=== PATIENT | male | born 1940 | race Caucasian/White ===

== ENCOUNTER 2018-06-15 00:01 | Inpatient (IN) | payer MEDICARE, MEDICAID ==
[~2018-06-15] VITALS: Ht 165.1 cm; Wt 62.3 kg
[2018-06-15] VITALS (7 sets, daily range): BP systolic 105–152; BP diastolic 50–81
[2018-06-15] MEDS ORDERED: ACETAMINOPHEN325 M1 ORAL (00:15)
[2018-06-15] MEDS ORDERED: ISOSOURCE HN1500 ML PO (00:25)
[2018-06-15] MEDS ORDERED: PRO-STAT LIQUID30 ML ORAL (00:25)
[2018-06-15] MEDS ORDERED: ADULT WAL-100 MG/5 M ORAL (00:25)
[2018-06-15] MEDS ORDERED: NORCO 5-325 TA1 EACH ORAL (00:25)
[2018-06-15] MEDS ORDERED: ENEMA133 M1 RC (00:25)
[2018-06-15] MEDS ORDERED: SENNA8.6 M2 PO (00:25)
[2018-06-15] MEDS ORDERED: COLACE100 MG ORAL (00:25)
[2018-06-15] MEDS ORDERED: ZOFRAN4 M3 ORAL (00:25)
[2018-06-15] MEDS ORDERED: CALCIUM CARBON500 M1 PO (00:25)
[2018-06-15] MEDS ORDERED: FOLIC ACID1 MG ORAL (00:25)
[2018-06-15] MEDS ORDERED: SINEMET 25-1001 EAC1 ORAL (00:25)
[2018-06-15] MEDS ORDERED: TIZANIDINE HCL4 MG ORAL (00:25)
[2018-06-15] MEDS ORDERED: ISOSORBIDE DINIT5 MG ORAL (00:25)
[2018-06-15] MEDS ORDERED: PANTOPRAZOLE SO40 MG ORAL (00:25)
[2018-06-15] MEDS ORDERED: LISINOPRIL5 MG ORAL (00:25)
[2018-06-15 00:54] LABS: BASOPHILS % (AUTO) 0.4 % (0.0-2.0); EOSINOPHILS % (AUTO) 0.2 % (0.0-3.0); HEMATOCRIT 29.6 % (42.0-52.0); HEMOGLOBIN 10.2 G/DL (14.2-18.0); LYMPHOCYTES % (AUTO) 15.4 % (20.0-45.0); MEAN CORPUSCULAR VOLUME 91 FL (80-99); MONOCYTES % (AUTO) 5.4 % (1.0-10.0); NEUTROPHILS % (AUTO) 78.6 % (45.0-75.0); PLATELET COUNT 287 K/UL (150-450); RED BLOOD COUNT 3.27 M/UL (4.70-6.10); RED CELL DISTRIBUTION WIDTH 12.3 % (11.6-14.8)
--- NOTE | 2018-06-15 00:56 | Emergency Room Report ---
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 He is a jail patient is a DO NOT RESUSCITATE with selected treatment. He has a G-tube and Tiwari. Also has chronic decubital ulcers. He presents with chief complaint of fever and change in mental status. Onset today. Tylenol was given for the fever. There is some congestion. No nausea no vomiting. No diarrhea. History is from EMS and jail note. Patient unable to give a history because he is nonverbal. Allergies: Coded Allergies: No Known Allergies (Unverified , 06/15/18) Patient History Past Medical History: see triage record, old chart reviewed Past Surgical History: other Pertinent Family History: none Social History: Denies: smoking Immunizations: other Reviewed Nursing Documentation: PMH: Agreed; PSxH: Agreed Nursing Documentation-PMH Past Medical History: No History, Except For Hx Cardiac Problems: Yes - atherosclerotic heart disease, anemia, elevated white blood cell count Hx Hypertension: Yes Hx COPD: Yes Hx Gastrointestinal Problems: Yes - gtube, dysphagia, gerd Hx Dialysis: No - pressure ulcer on sacral & left hip Review of Systems Constitutional: Reports: fever Eye: Denies: eye pain, blurred vision ENT: Denies: ear pain, nose congestion, throat swelling Respiratory: Reports: shortness of breath Cardiovascular: Denies: chest pain, palpitations Gastrointestinal: Denies: abdominal pain, diarrhea, nausea, vomiting Musculoskeletal: Denies: back pain, joint pain Skin: Denies: rash Neurological: Denies: headache, numbness Endocrine: Denies: increased thirst, increased urine Hematologic/Lymphatic: Denies: easy bruising All Other Systems: negative except mentioned in HPI Physical Exam Vital Signs Date Time Temp Pulse Resp B/P (MAP) Pulse Ox O2 Delivery O2 Flow Rate FiO2 06/15/18 00:04 98.0 69 20 101/59 91 Room Air 98.1 vitals with hypoxia Sp02 EP Interpretation: abnormal General Appearance: moderate distress, cachetic, Chronically Ill Head: normocephalic, atraumatic Eyes: bilateral eye PERRL, bilateral eye EOMI ENT: hearing grossly normal, dry mucus membranes Neck: full range of motion, supple, no meningismus Respiratory: chest non-tender, decreased breath sounds, crackles - right lower lobe Cardiovascular #1: regular rate, rhythm, no murmur Gastrointestinal: normal bowel sounds, non tender, no mass, no organomegaly, no bruit, non-distended Musculoskeletal: other - multiple decubital ulcers Neurologic: grossly normal Psychiatric: mood/affect normal Skin: warm/dry Procedures Critical Care Time Critical Care Time Critical care is mandated in this patient who presented with sepsis from pneumonia. Patient require my urgent intervention to attenuate the risks of and metabolic collapse which may lead to cardiovascular collapse and . Critical care time is 35 minutes excluding any reportable procedure. Critical care time included evaluation, multiple reevaluation, looking at old charts, interpreting laboratory and diagnostic data, discussing case with patient and family and consultants, and charting. Medical Decision Making Diagnostic Impression: Primary Impression: Sepsis Qualified Codes: A41.9 - Sepsis, unspecified organism Additional Impressions: Healthcare-associated pneumonia Aspiration pneumonia Qualified Codes: J69.0 - Pneumonitis due to inhalation of food and vomit UTI (urinary tract infection) Qualified Codes: N30.00 - Acute cystitis without hematuria Anemia Qualified Codes: D64.9 - Anemia, unspecified Acute prerenal azotemia Proteinuria Qualified Codes: R80.9 - Proteinuria, unspecified ER Course Patient presents with sepsis. Most likely source is pneumonia. He may have aspiration pneumonia. White spectrum antibiotics given. Other sources include his urine. Patient improved after IV fluid and antibiotics. I discussed the case with Dr. Torres who will admit. Lab Results Impression labs with elevated white count EKG Diagnostic Results Rate: normal Rhythm: NSR ST Segments: no acute changes ASA given to the pt in ED: No Rhythm Strip Diag. Results Rhythm Strip Time: 00:55 EP Interpretation: yes Rate: 76 Rhythm: NSR, no PVC's, no ectopy Chest X-Ray Diagnostic Results Chest X-Ray Diagnostic Results : Chest X-Ray Ordered: Yes # of Views/Limited/Complete: 1 View Indication: Shortness of Breath EP Interpretation: Yes Interpretation: no effusion, no pneumothorax, other - RLL infiltrate Impression: Other - RLL infiltrate Electronically Signed by: Tony Coughlin MD Last Vital Signs Date Time Temp Pulse Resp B/P (MAP) Pulse Ox O2 Delivery O2 Flow Rate FiO2 06/15/18 00:04 98.0 69 20 101/59 91 Room Air 98.1 Status: improved Disposition: HOME, SELF-CARE Condition: Serious Referrals: Beltran Santos MD (PCP) TONY COUGHLIN M.D. Jun 15, 2018 00:56
[2018-06-15 00:57] LABS: BILIRUBIN, URINE NEGATIVE (NEGATIVE); GLUCOSE, URINE (UA) 1+ (NEGATIVE); KETONES,URINE 1+ (NEGATIVE); LEUKOCYTE ESTERASE ,URINE 3+ (NEGATIVE); NITRITE,URINE NEGATIVE (NEGATIVE); PH,URINE 5 (4.5-8.0); PROTEIN,URINE 3+ (NEGATIVE); UROBILINOGEN,URINE NORMAL MG/DL (0.0-1.0)
[2018-06-15] MEDS ORDERED: Piperacillin/Tazobactam 4.5 GM in NS 110 ML IVPB ONE (01:00)
[2018-06-15 01:04] LABS: APPEARANCE,URINE CLOUDY; COLOR,URINE YELLOW
[2018-06-15 01:16] LABS: ALANINE AMINOTRANSFERASE 12 U/L (12-78); ALBUMIN 2.6 G/DL (3.4-5.0); ALBUMIN/GLOBULIN RATIO 0.5 (1.0-2.7); ALKALINE PHOSPHATASE 73 U/L (46-116); ANION GAP 6 mmol/L (5-15); ASPARTATE AMINO TRANSFERASE 17 U/L (15-37); BILIRUBIN,TOTAL 0.3 MG/DL (0.2-1.0); BLOOD UREA NITROGEN 71 mg/dL (7-18); CALCIUM 8.7 MG/DL (8.5-10.1); CARBON DIOXIDE 31 MMOL/L (21-32); CHLORIDE 101 MMOL/L (98-107); CKMB 0.7 NG/ML (0.0-3.6); CREATINE KINASE 76 U/L (26-308); CREATININE 1.1 MG/DL (0.55-1.30); POTASSIUM 4.3 MMOL/L (3.5-5.1); SODIUM 138 MMOL/L (136-145)
[2018-06-15] MEDS ORDERED: Albuterol/Ipratropium 3ml neb HHN PRN (06:30)
[2018-06-15] MEDS ORDERED: guaiFENesin 100mg/5ml Liq ud ORAL PRN (06:45)
[2018-06-15] MEDS ORDERED: Tums 500mg ORAL PRN (06:45)
[2018-06-15] MEDS ORDERED: Norco 5mg/325mg tab ORAL PRN (06:45)
[2018-06-15 07:44] LABS: HEMATOCRIT 28.7 % (42.0-52.0); HEMOGLOBIN 9.9 G/DL (14.2-18.0); MEAN CORPUSCULAR VOLUME 90 FL (80-99); PLATELET COUNT 244 K/UL (150-450); RED BLOOD COUNT 3.19 M/UL (4.70-6.10); RED CELL DISTRIBUTION WIDTH 12.1 % (11.6-14.8); WHITE BLOOD COUNT 19.6 K/UL (4.8-10.8)
[2018-06-15] MEDS ORDERED: Vancomycin 1gm/D5W 275ml IVPB SCH ×2 (08:00)
[2018-06-15] MEDS ORDERED: Vancomycin 1250mg/D5W 250ml IVPB ONE (08:00)
[2018-06-15 08:01] LABS: ALANINE AMINOTRANSFERASE 23 U/L (12-78); ALBUMIN 2.3 G/DL (3.4-5.0); ALBUMIN/GLOBULIN RATIO 0.5 (1.0-2.7); ALKALINE PHOSPHATASE 65 U/L (46-116); ANION GAP 6 mmol/L (5-15); ASPARTATE AMINO TRANSFERASE 15 U/L (15-37); BILIRUBIN,TOTAL 0.5 MG/DL (0.2-1.0); BLOOD UREA NITROGEN 57 mg/dL (7-18); CALCIUM 8.6 MG/DL (8.5-10.1); CARBON DIOXIDE 30 MMOL/L (21-32); CHLORIDE 105 MMOL/L (98-107); POTASSIUM 4.2 MMOL/L (3.5-5.1); SODIUM 141 MMOL/L (136-145)
[2018-06-15] MEDS: 1/2NS w/KCl 20mEq 1000ml 1,000 ML IV SCH (08:16)
[2018-06-15] MEDS: Docusate 100mg/10ml Liq GT SCH ×2 (08:17→17:43)
[2018-06-15] MEDS: Lisinopril 2.5mg tab GT SCH (08:20)
[2018-06-15] MEDS: Heparin 5000 units/ml inj SUBQ SCH ×2 (08:23→22:03)
[2018-06-15] MEDS: Levodopa/Carbidopa 25/100 tab GT SCH ×3 (09:56→17:43)
[2018-06-15] MEDS ORDERED: Zosyn 4.5gm q8h **Extended infusion IVPB SCH ×2 (10:00)
--- NOTE | 2018-06-15 11:22 | Diagnostic Imaging Report ---
Indication: Dyspnea Comparison: None A single view chest radiograph was obtained. Findings: Cardiomediastinal appearance is within normal limits for age. Pulmonary vascularity is appropriate. The diaphragmatic contour is smooth and costophrenic angles are sharp. No pleural effusions are identified. The bones are osteopenic. Impression: No acute findings
[2018-06-15] MEDS: NovoLOG Insulin Flexpen SUBQ SCH ×3 (12:49→22:04)
--- NOTE | 2018-06-15 16:15 | History and Physical Report ---
DATE OF ADMISSION: 06/15/2018 CHIEF COMPLAINT: Shortness of breath and fever. HISTORY OF PRESENT ILLNESS: This is a 78-year-old male from a senior living, I was called about developing fever and shortness of breath. The patient is demented. He has end-stage Parkinson disease. He was transferred to the hospital for further evaluation and management. PAST MEDICAL HISTORY: 1. End-stage Parkinson disease. 2. DNR. 3. Multiple decubitus ulcers. 4. Status post gastrostomy tube. 5. COPD. 6. Dysphagia. 7. Coronary artery disease. 8. Anemia of chronic disease. 9. Severe volume depletion. MEDICATIONS: Tube feeding, Tylenol p.r.n., calcium carbonate, carbidopa/L-dopa, Colace, Fleet enema, folic acid, [place] p.r.n., lisinopril, Protonix, amino acid liquid, senna p.r.n., and Zofran p.r.n. ALLERGIES: No known drug allergies. FAMILY HISTORY: Unremarkable. SOCIAL HISTORY: The patient lives in a senior living. REVIEW OF SYSTEMS: Unable to obtain due to his mental status. PHYSICAL EXAMINATION: GENERAL: This is an elderly cachectic male, who is in no acute distress. VITAL SIGNS: Blood pressure 152/79, pulse 83 and regular, respirations 20, and temperature is 98.2 axillary. HEENT: Head is normocephalic and atraumatic. Pupils are equal, round, and reactive to light and accommodation consensually. NECK: Supple. Trachea midline. There was no lymphadenopathy or thyromegaly. LUNGS: Clear to auscultation and percussion. HEART: Regular rate and rhythm without rubs, murmurs, or gallops. ABDOMEN: Soft and nontender. Bowel sounds were active. There is a G-tube. SKIN: He has multiple decubitus ulcers including left snuff box including sacral area stage 3. EXTREMITIES: He has contractures. NEUROLOGIC: The patient is confused. He has extreme rigidity in all four extremities. There were no lateralizing signs. LABORATORY AND ANCILLARY DATA: CBC shows white count 19,600 and hematocrit 28.7. Serum chemistry today is pending. On admission, sodium 138, potassium 4.3, BUN 71, creatinine 1.1. Albumin 2.6. Cultures pending. EKG in normal sinus rhythm. No signs of ischemia. Chest x-ray, right lower lobe infiltrate. ASSESSMENT: 1. Right lower lobe pneumonia, most likely aspiration pneumonia. 2. Multiple decubitus ulcers. 3. End-stage Parkinson disease. 4. DNR. 5. Multiple decubitus ulcers. 6. Status post gastrostomy tube. 7. COPD. 8. Dysphagia. 9. Coronary artery disease. 10. Anemia of chronic disease. 11. Severe volume depletion. PLAN: 1. Continue senior living medications with exception of Fleet enema that may exacerbate the patient's hyperphosphatemia, and "muscle relaxants" that may produce altered level of consciousness and anti cholinergic effects. 2. Nutritional support. 3. Local wound care. 4. IV fluid rehydration. 5. IV antibiotics. 6. Reduce tube feeding rate. 7. Continue the patient's DNR status. 8. Pulmonary toilet. Beltran Santos M.D. DR: WOLF JOB#: [id number] CC: JOSE MANUEL
[2018-06-15] MEDS: Sennosides 8.6mg GT SCH (22:00)
[2018-06-15] MEDS: Piperacillin/Tazobactam 4.5 GM in D5W 110 ML IVPB SCH (22:11)
[2018-06-16] VITALS: BP 128/68
[2018-06-16] MEDS: 1/2NS w/KCl 20mEq 1000ml 1,000 ML IV SCH ×2 (03:01→23:53)
[2018-06-16] MEDS: Piperacillin/Tazobactam 4.5 GM in D5W 110 ML IVPB SCH ×3 (06:28→22:30)
[2018-06-16] MEDS: NovoLOG Insulin Flexpen SUBQ SCH ×4 (06:28→20:49)
[2018-06-16] MEDS: Docusate 100mg/10ml Liq GT SCH ×2 (09:45→17:50)
[2018-06-16] MEDS: Lisinopril 2.5mg tab GT SCH (09:45)
[2018-06-16] MEDS: Levodopa/Carbidopa 25/100 tab GT SCH ×3 (09:46→17:50)
[2018-06-16] MEDS: Vancomycin 1gm/D5W 275ml IVPB SCH ×2 (09:52)
[2018-06-16] MEDS: Heparin 5000 units/ml inj SUBQ SCH ×2 (10:08→20:46)
--- NOTE | 2018-06-16 10:25 | General Progress Note ---
Assessment/Plan Assessment/Plan [facility] - IVF. Check labs. B Pneumonia IV Abx. Modify mood altering meds. DW pt's . Subjective Allergies: Coded Allergies: No Known Allergies (Unverified , 06/15/18) Subjective Confused Objective Last 24 Hour Vital Signs Date Time Temp Pulse Resp B/P (MAP) Pulse Ox O2 Delivery O2 Flow Rate FiO2 06/16/18 09:45 128/68 06/16/18 07:44 Nasal Cannula 2.0 28 06/16/18 07:44 79 18 Nasal Cannula 2.0 28 06/16/18 07:44 98 Nasal Cannula 2.0 28 06/16/18 04:00 81 06/16/18 00:00 98.0 72 22 128/68 (88) 100 98.0 06/15/18 23:00 98.6 06/15/18 22:01 98.6 06/15/18 21:00 Nasal Cannula 2.0 06/15/18 20:21 82 18 Nasal Cannula 2.0 28 06/15/18 20:21 99 Nasal Cannula 2.0 28 06/15/18 20:21 Nasal Cannula 2.0 28 06/15/18 20:00 84 06/15/18 20:00 97.7 84 20 146/81 (102) 100 97.7 06/15/18 16:00 72 06/15/18 12:00 99.0 84 18 129/68 (88) 100 99.0 06/15/18 12:00 79 Intake and Output 06/15/18 06/16/18 19:00 07:00 Intake Total 1403.334 ml 1555.0 ml Output Total 900 ml Balance 1403.334 ml 655.0 ml Free Water 120 ml 200 ml IV Total 1043.334 ml 855.0 ml Tube Feeding 240 ml 440 ml Other 60 ml Output Urine Total 900 ml # Bowel Movements 2 Height (Feet): 5 Height (Inches): 5.00 Weight (Pounds): 150 Objective [place]. CV Rr Lungs B ronchi. Abd SNT. BS +. PEg. E contractures. Skin - decubitus ulcers. Beltran Santos MD Jun 16, 2018 10:25
[2018-06-16 12:00] VITALS: BP 139/65
[2018-06-16 16:00] VITALS: BP 125/67
[2018-06-16] MEDS ORDERED: NS 275ml ONE (16:39)
[2018-06-16] MEDS: Acetaminophen 650mg/20.3ml GT PRN (17:49)
[2018-06-16 20:00] VITALS: BP 116/49
[2018-06-16] MEDS: Sennosides 8.6mg GT SCH (20:46)
[2018-06-17] VITALS: BP 119/55
[2018-06-17 04:00] VITALS: BP 110/62
[2018-06-17] MEDS: Piperacillin/Tazobactam 4.5 GM in D5W 110 ML IVPB SCH ×3 (06:13→22:16)
[2018-06-17] MEDS: NovoLOG Insulin Flexpen SUBQ SCH ×4 (06:14→20:42)
[2018-06-17 07:47] LABS: BASOPHILS % (AUTO) 0.5 % (0.0-2.0); EOSINOPHILS % (AUTO) 1.6 % (0.0-3.0); HEMATOCRIT 28.4 % (42.0-52.0); HEMOGLOBIN 9.6 G/DL (14.2-18.0); LYMPHOCYTES % (AUTO) 11.4 % (20.0-45.0); MEAN CORPUSCULAR VOLUME 90 FL (80-99); MONOCYTES % (AUTO) 5.9 % (1.0-10.0); NEUTROPHILS % (AUTO) 80.7 % (45.0-75.0); PLATELET COUNT 250 K/UL (150-450); RED BLOOD COUNT 3.17 M/UL (4.70-6.10); RED CELL DISTRIBUTION WIDTH 12.4 % (11.6-14.8); WHITE BLOOD COUNT 13.1 K/UL (4.8-10.8)
[2018-06-17 07:55] LABS: ALANINE AMINOTRANSFERASE 26 U/L (12-78); ALBUMIN/GLOBULIN RATIO 0.5 (1.0-2.7); ALKALINE PHOSPHATASE 68 U/L (46-116); ANION GAP 6 mmol/L (5-15); ASPARTATE AMINO TRANSFERASE 17 U/L (15-37); BILIRUBIN,TOTAL 0.3 MG/DL (0.2-1.0); BLOOD UREA NITROGEN 32 mg/dL (7-18); CALCIUM 8.6 MG/DL (8.5-10.1); CARBON DIOXIDE 27 MMOL/L (21-32); CHLORIDE 100 MMOL/L (98-107); CREATININE 0.8 MG/DL (0.55-1.30); SODIUM 133 MMOL/L (136-145)
[2018-06-17 08:00] VITALS: BP 117/60
[2018-06-17] MEDS: Vancomycin 1gm/D5W 275ml IVPB SCH ×2 (08:23)
[2018-06-17] MEDS: Levodopa/Carbidopa 25/100 tab GT SCH ×3 (08:24→17:19)
[2018-06-17] MEDS: Docusate 100mg/10ml Liq GT SCH ×2 (08:24→17:19)
[2018-06-17] MEDS: Lisinopril 2.5mg tab GT SCH (08:25)
[2018-06-17] MEDS: Heparin 5000 units/ml inj SUBQ SCH ×2 (08:27→20:43)
--- NOTE | 2018-06-17 10:03 | General Progress Note ---
Assessment/Plan Assessment/Plan [facility] - IVF. Check labs. B Pneumonia IV Abx. Modify mood altering meds. DW pt's . Subjective Allergies: Coded Allergies: No Known Allergies (Unverified , 06/15/18) Subjective Confused Objective Last 24 Hour Vital Signs Date Time Temp Pulse Resp B/P (MAP) Pulse Ox O2 Delivery O2 Flow Rate FiO2 06/17/18 09:00 Nasal Cannula 2.0 06/17/18 08:25 117/60 06/17/18 08:18 98 Nasal Cannula 2.0 28 06/17/18 08:17 77 20 Nasal Cannula 2.0 28 06/17/18 08:17 Nasal Cannula 2.0 28 06/17/18 08:00 85 06/17/18 08:00 98.2 86 20 117/60 (79) 96 98.2 06/17/18 04:00 97.3 81 20 110/62 (78) 97 97.3 06/17/18 04:00 83 06/17/18 00:00 83 06/17/18 00:00 96.9 79 20 119/55 (76) 95 96.9 06/16/18 21:00 Nasal Cannula 2.0 06/16/18 20:00 98.2 87 20 116/49 (71) 93 98.2 06/16/18 20:00 87 06/16/18 19:02 99 Nasal Cannula 2.0 28 06/16/18 19:02 Nasal Cannula 2.0 28 06/16/18 19:02 82 20 Nasal Cannula 2.0 28 06/16/18 18:29 100.0 06/16/18 16:00 87 06/16/18 16:00 100.0 93 18 125/67 (86) 95 100.0 06/16/18 12:00 99.5 87 18 139/65 (89) 95 99.5 06/16/18 12:00 84 Intake and Output 06/16/18 06/17/18 19:00 07:00 Output Total 500 ml Balance -500 ml Output Urine Total 500 ml # Bowel Movements 3 1 Laboratory Tests 06/17/18 05:05: White Blood Count 13.1H, Red Blood Count 3.17L, Hemoglobin 9.6L, Hematocrit 28.4L, Mean Corpuscular Volume 90, Mean Corpuscular Hemoglobin 30.3, Mean Corpuscular Hemoglobin Concent 33.8, Red Cell Distribution Width 12.4, Platelet Count 250, Mean Platelet Volume 7.7, Neutrophils (%) (Auto) 80.7H, Lymphocytes ( %) (Auto) 11.4L, Monocytes (%) (Auto) 5.9, Eosinophils (%) (Auto) 1.6, Basophils (%) (Auto) 0.5, Sodium Level 133L, Potassium Level 4.0, Chloride Level 100, Carbon Dioxide Level 27, Anion Gap 6, Blood Urea Nitrogen 32H, Creatinine 0.8, Estimat Glomerular Filtration Rate , Glucose Level 238H, Calcium Level 8.6, Magnesium Level 1.8, Total Bilirubin 0.3, Aspartate Amino Transf (AST/SGOT) 17, Alanine Aminotransferase (ALT/SGPT) 26, Alkaline Phosphatase 68, Total Protein 6.4, Albumin 2.0L, Globulin 4.4, Albumin/Globulin Ratio 0.5L Height (Feet): 5 Height (Inches): 5.00 Weight (Pounds): 150 Objective [place]. CV Rr Lungs B ronchi. Abd SNT. BS +. PEg. E contractures. Skin - decubitus ulcers. Beltran Santos MD Jun 17, 2018 10:03
[2018-06-17 12:00] VITALS: BP 133/55
[2018-06-17] MEDS: NS w/KCl 20mEq 1,000 ML IV SCH (12:46)
[2018-06-17 16:00] VITALS: BP 122/55
[2018-06-17 20:00] VITALS: BP 111/49
[2018-06-17] MEDS: Acetaminophen 650mg/20.3ml GT PRN (20:40)
[2018-06-17] MEDS: Sennosides 8.6mg GT SCH (20:45)
[2018-06-17] MEDS: metroNIDAZOLE 500mg tab GT SCH (22:16)
[2018-06-18] VITALS: BP 101/50
[2018-06-18 04:00] VITALS: BP 123/77
[2018-06-18] MEDS: Piperacillin/Tazobactam 4.5 GM in D5W 110 ML IVPB SCH ×3 (05:29→20:35)
[2018-06-18] MEDS: metroNIDAZOLE 500mg tab GT SCH (05:29)
[2018-06-18] MEDS: NovoLOG Insulin Flexpen SUBQ SCH ×4 (05:32→20:39)
[2018-06-18 08:00] VITALS: BP 122/65
[2018-06-18] MEDS: Vancomycin 1gm/D5W 275ml IVPB SCH ×2 (08:00)
[2018-06-18] MEDS: NS w/KCl 20mEq 1,000 ML IV SCH (08:07)
[2018-06-18] MEDS: Docusate 100mg/10ml Liq GT SCH ×2 (08:07→17:07)
[2018-06-18] MEDS: Lisinopril 2.5mg tab GT SCH (08:10)
[2018-06-18] MEDS: Levodopa/Carbidopa 25/100 tab GT SCH ×3 (08:13→17:07)
[2018-06-18] MEDS: Heparin 5000 units/ml inj SUBQ SCH ×2 (08:14→20:40)
--- NOTE | 2018-06-18 09:44 | General Progress Note ---
Assessment/Plan Assessment/Plan [facility] - IVF. Check labs. B Pneumonia IV Abx. Modify mood altering meds. DW pt's . Had several runs of V Tach last night. To check with cardiology. Subjective Allergies: Coded Allergies: No Known Allergies (Unverified , 06/15/18) Subjective Confused Objective Last 24 Hour Vital Signs Date Time Temp Pulse Resp B/P (MAP) Pulse Ox O2 Delivery O2 Flow Rate FiO2 06/18/18 09:00 Nasal Cannula 2.0 06/18/18 08:10 116/58 06/18/18 08:00 98.8 82 20 122/65 (84) 99 98.8 06/18/18 04:00 80 06/18/18 04:00 97.3 76 18 123/77 (92) 99 97.3 06/18/18 00:00 98.4 79 18 101/50 (67) 99 98.4 06/18/18 00:00 85 06/17/18 21:10 98.5 06/17/18 21:00 Nasal Cannula 2.0 06/17/18 20:40 100.4 06/17/18 20:00 100.4 72 18 111/49 (69) 95 100.4 06/17/18 20:00 92 06/17/18 19:56 Nasal Cannula 2.0 28 06/17/18 19:56 98 Nasal Cannula 2.0 28 06/17/18 19:56 91 20 Nasal Cannula 2.0 28 06/17/18 16:00 83 06/17/18 16:00 99.5 84 21 122/55 (77) 96 99.5 06/17/18 12:00 83 06/17/18 12:00 98.2 98 21 133/55 (81) 96 98.2 Intake and Output 06/17/18 06/18/18 19:00 07:00 Intake Total 800 ml Output Total 600 ml 700 ml Balance -600 ml 100 ml Free Water 200 ml Tube Feeding 600 ml Output Urine Total 600 ml 700 ml # Bowel Movements 6 1 Laboratory Tests 06/18/18 07:30: Vancomycin Level Trough 8.2 Height (Feet): 5 Height (Inches): 5.00 Weight (Pounds): 150 Objective [place]. CV Rr Lungs B ronchi. Abd SNT. BS +. PEg. E contractures. Skin - decubitus ulcers. Beltran Santos MD Jun 18, 2018 09:44
--- NOTE | 2018-06-18 11:33 | Cardiology Progress Note ---
Subjective Subjective [id number] Objective Last 24 Hour Vital Signs Date Time Temp Pulse Resp B/P (MAP) Pulse Ox O2 Delivery O2 Flow Rate FiO2 06/18/18 09:00 Nasal Cannula 2.0 06/18/18 08:43 81 18 Nasal Cannula 2.0 28 06/18/18 08:40 Nasal Cannula 2.0 28 06/18/18 08:40 99 Nasal Cannula 2.0 28 06/18/18 08:10 116/58 06/18/18 08:00 98.8 82 20 122/65 (84) 99 98.8 06/18/18 08:00 84 06/18/18 04:00 80 06/18/18 04:00 97.3 76 18 123/77 (92) 99 97.3 06/18/18 00:00 98.4 79 18 101/50 (67) 99 98.4 06/18/18 00:00 85 06/17/18 21:10 98.5 06/17/18 21:00 Nasal Cannula 2.0 06/17/18 20:40 100.4 06/17/18 20:00 100.4 72 18 111/49 (69) 95 100.4 06/17/18 20:00 92 06/17/18 19:56 Nasal Cannula 2.0 28 06/17/18 19:56 98 Nasal Cannula 2.0 28 06/17/18 19:56 91 20 Nasal Cannula 2.0 28 06/17/18 16:00 83 06/17/18 16:00 99.5 84 21 122/55 (77) 96 99.5 06/17/18 12:00 83 06/17/18 12:00 98.2 98 21 133/55 (81) 96 98.2 Intake and Output 06/17/18 06/18/18 19:00 07:00 Intake Total 800 ml Output Total 600 ml 700 ml Balance -600 ml 100 ml Free Water 200 ml Tube Feeding 600 ml Output Urine Total 600 ml 700 ml # Bowel Movements 6 1 Laboratory Tests Test 06/18/18 07:30 Vancomycin Level Trough 8.2 ug/mL (5.0-12.0) Ayesha Bell MD Jun 18, 2018 11:33
[2018-06-18 12:00] VITALS: BP 132/71
--- NOTE | 2018-06-18 13:30 | Consultation ---
DATE OF CONSULTATION: 06/18/2018 CARDIOLOGY CONSULTATION CONSULTING PHYSICIAN: Aeysha Bell M.D. IDENTIFYING DATA: This is a 78-year-old male. REASON FOR EVALUATION: Ventricular tachycardia. HISTORY OF PRESENT ILLNESS: History was taken from the chart. The patient is nonverbal. He is a skilled nursing demented gentleman, contracted, and bedridden. He was admitted with sepsis, fever, elevated white count, dehydration, and he also had one episode of ventricular tachycardia. PAST MEDICAL HISTORY: Significant for end-stage Parkinson disease, dementia, COPD, anemia, dehydration, and he has a G-tube. MEDICATIONS: His medications were all reviewed. ALLERGIES: Not reported. SOCIAL HISTORY: He is completely dependent and lives at skilled nursing. REVIEW OF SYSTEMS: Not available as the patient is unresponsive. He has a G-tube and Tiwari catheter. He arrived with Tiwari catheter and it was changed here in the emergency department. PHYSICAL EXAMINATION: GENERAL: The patient is unresponsive, cachectic gentleman, resting in bed, contracted. VITAL SIGNS: His temperature, the highest yesterday was 100.4. Prior to that, today it is 98.3, his blood pressure is 120/70, his heart rate is 80, his saturation is 99% on 2 liters of oxygen. He is contracted, leaning to left side. HEENT: Eyes shut down tight and I could not even open them. He had mild tremor. NECK: His neck veins do not appear to be elevated. His carotid upstroke bilaterally palpable without bruit. He has no masses in the neck. LUNGS: He has normal breath sounds. HEART: PMI is in the fifth intercostal space in the midclavicular line. Nonsustained. He has positive S4, otherwise his heart sounds are unremarkable. ABDOMEN: Scaphoid. He has a G tube. EXTREMITIES: He has contracted left arm and both legs. Distal pulses diminished. There is an ulcer on his sacral area. LABORATORY AND DIAGNOSTIC DATA: White count today down 13.1, his hemoglobin 9.6, his platelets are 250. His potassium was 4, his BUN is 32, and his total protein is 6.4. Urinalysis showed too numerous to count white cells. His ECG showed sinus rhythm without significant abnormalities. His echocardiogram was done, I did not review it personally, but looks like he has preserved ejection fraction and no significant valvular disease. His cardiac rhythm is sinus rhythm and he had episodes of ventricular tachycardia. Ventricular tachycardia, which was on June 17 at 14:09 eight beats in a row that looks like there is retrograde P-wave, LVH, QRS and a pattern of right ventricular outflow and the rate was approximately 120 beats per minute. He also had occasional PVCs. IMPRESSION AND RECOMMENDATION: The patient is bedridden gentleman. He had nonsustained ventricular tachycardia, which does not require any specific treatment, may be manifestation of his sepsis are just incidental. His labs and electrolytes appeared to be at a good level, but sodium was slightly down 133. However overall prognosis of this gentleman is extremely poor. Independently of his ventricular tachycardia, I am not planning to give him any additional treatment for that. At baseline, his heart rate is appropriate and he does not have indication for beta marlon. Thank you very much for your consultation. This patient does not require follow up from cardiac standpoint. Ayesha Bell M.D. DR: JOSE JOB#: [id number] CC:
[2018-06-18 16:00] VITALS: BP 142/88
[2018-06-18 20:00] VITALS: BP 122/58
[2018-06-18] MEDS: Sennosides 8.6mg GT SCH (20:30)
[2018-06-18] MEDS: Vancomycin 750mg/NS 250ml IVPB SCH (20:34)
[2018-06-19] VITALS: BP 123/65
[2018-06-19] MEDS: NS w/KCl 20mEq 1,000 ML IV SCH (03:00)
[2018-06-19 04:00] VITALS: BP 113/56
[2018-06-19] MEDS: Piperacillin/Tazobactam 4.5 GM in D5W 110 ML IVPB SCH (06:54)
[2018-06-19] MEDS: NovoLOG Insulin Flexpen SUBQ SCH ×3 (07:03→18:42)
[2018-06-19 08:00] VITALS: BP 115/58
[2018-06-19] MEDS: Docusate 100mg/10ml Liq GT SCH ×2 (08:22→18:39)
[2018-06-19] MEDS: Lisinopril 2.5mg tab GT SCH (08:23)
[2018-06-19] MEDS: Levodopa/Carbidopa 25/100 tab GT SCH ×3 (08:23→18:39)
[2018-06-19] MEDS: Vancomycin 750mg/NS 250ml IVPB SCH (08:23)
[2018-06-19] MEDS: Heparin 5000 units/ml inj SUBQ SCH ×2 (08:24→21:18)
--- NOTE | 2018-06-19 08:34 | General Progress Note ---
Assessment/Plan Assessment/Plan [facility] - IVF. Check labs. B Pneumonia IV Abx. ESBL Klebsiela - adjusted Abx + ID to advise. Modify mood altering meds. DW pt's . Had several runs of V Tach last night. To check with Cardiology. Done. ECF in AM if no objection from consultants. Subjective Allergies: Coded Allergies: No Known Allergies (Unverified , 06/15/18) Subjective Confused Objective Last 24 Hour Vital Signs Date Time Temp Pulse Resp B/P (MAP) Pulse Ox O2 Delivery O2 Flow Rate FiO2 06/19/18 08:23 115/58 06/19/18 08:00 98.1 75 20 115/58 (77) 96 98.1 06/19/18 04:00 98.1 70 20 113/56 (75) 99 98.1 06/19/18 04:00 73 06/19/18 00:00 98.6 77 20 123/65 (84) 95 98.6 06/19/18 00:00 79 06/18/18 21:00 Nasal Cannula 2.0 06/18/18 20:00 99.3 77 20 122/58 (79) 98 99.3 06/18/18 20:00 84 06/18/18 18:50 Nasal Cannula 2.0 28 06/18/18 18:50 99 Nasal Cannula 2.0 28 06/18/18 18:50 77 18 Nasal Cannula 2.0 28 06/18/18 16:00 98.8 84 20 142/88 (106) 100 98.8 06/18/18 16:00 86 06/18/18 12:00 98.1 76 20 132/71 (91) 99 98.1 06/18/18 12:00 84 06/18/18 09:00 Nasal Cannula 2.0 06/18/18 08:43 81 18 Nasal Cannula 2.0 28 06/18/18 08:40 Nasal Cannula 2.0 28 06/18/18 08:40 99 Nasal Cannula 2.0 28 Intake and Output 06/18/18 06/19/18 19:00 07:00 Intake Total 1657.416 ml 90 ml Output Total 900 ml 2500 ml Balance 757.416 ml -2410 ml Free Water 120 ml 0 ml IV Total 977.416 ml 50 ml Tube Feeding 560 ml 40 ml Output Urine Total 900 ml 2500 ml # Bowel Movements 8 1 Height (Feet): 5 Height (Inches): 5.00 Weight (Pounds): 150 Objective [place]. CV Rr Lungs B ronchi. Abd SNT. BS +. PEg. E contractures. Skin - decubitus ulcers. Beltran Santos MD Jun 19, 2018 08:34
--- NOTE | 2018-06-19 09:49 | Physician Query ---
--------- THIS DOCUMENT IS A PERMANENT PART OF THE MEDICAL RECORD --------- PLEASE COMPLETE DOCUMENT BEFORE SIGNING Dear Dr. Santos Date: 06/19/2018 [employer] Vice President/CDS Name: Jenna Robles [employer] Vice President/CDS Phone No.: [phone] Exercise your independent professional judgment when responding to the query. Questions asked do not imply a particular answer is desired or expected. We greatly appreciate your clarification on this issue. CLINICAL DOCUMENTATION STATES: "Multiple decubitus ulcers" is documented in H&P and past medical history. Local wound care is is initiated. Can you please specify the stage for decubitus ulcer: PHYSICIAN RESPONSE: [ ] Stage 1: pre ulcer skin changes limited to persistent focal edema [ ] Stage 2: Abrasion, blister, partial thickness skin loss [x ] Stage 3: Full thickness skin loss involving subcutaneous tissue [ ] Stage 4: Necrosis of soft tissue through underlying muscle, tendon, or bone Condition Present on Admission: [x] Yes [] No []Clinically Undeterminable Please also document in your Progress Notes and/or Discharge Summary and indicate if the condition was present on admission. Michel RICHARD
[2018-06-19 12:00] VITALS: BP 118/73
[2018-06-19] MEDS ORDERED: Acetaminophen 650mg/20.3ml GT PRN (14:20)
[2018-06-19] MEDS ORDERED: Albuterol/Ipratropium 3ml neb HHN PRN (14:21)
[2018-06-19] MEDS ORDERED: Norco 5mg/325mg tab ORAL PRN (14:23)
[2018-06-19] MEDS ORDERED: Piperacillin/Tazobactam 4.5 GM in D5W 110 ML IVPB SCH (15:00)
[2018-06-19 15:59] VITALS: BP 122/63
[2018-06-19] MEDS ORDERED: NovoLOG Insulin Flexpen SUBQ SCH (16:30)
--- NOTE | 2018-06-19 17:00 | Cardiology Report ---
APPROVED REPORT EXAM: Two-dimensional and M-mode echocardiogram with Doppler and color Doppler. INDICATION Arrhythmia M-Mode DIMENSIONS IVSd1.1 (0.7-1.1cm)Left Atrium (MM)4.0 (1.6-4.0cm) LVDd3.8 (3.5-5.6cm)Aortic Root2.9 (2.0-3.7cm) PWd1.1 (0.7-1.1cm)Aortic Cusp Exc.1.8 (1.5-2.0cm) LVDs2.2 (2.5-4.0cm) PWs1.6 cm Technically difficult study due to patient position. Study quality precludes accurate assessment of regional wall motion. Normal left ventricular chamber size, systolic function and wall motion. Left ventricular ejection fraction estimated to be 55 %. Borderline left ventricular hypertrophy. Anterior Echo-free space, may be due to pericardial fat or effusion. All other cardiac chamber sizes are within normal limits. Mild focal aortic valve sclerosis with adequate cusp excursion. Mildly thickened mitral valve leaflets with normal excursion. Mild mitral annulus and aortic root calcification. Pulmonic valve not visualized. Normal tricuspid valve structure. Subcostal views not obtained due to G tube. A color flow and spectral Doppler study was performed and revealed: No aortic insufficiency. Mild to moderate mitral regurgitation. Mitral diastolic velocities suggest mild left ventricular diastolic dysfunction (Grade I). Trace tricuspid regurgitation. Tricuspid systolic velocities suggests peak right ventricular systolic pressure of 21 mmHg.
--- NOTE | 2018-06-19 17:58 | Infectious Diseases Prog Note ---
Assessment/Plan Assessment/Plan Full consult dictated: sepsis uti - esbl klebsiella and citrobacter pyelonephritis meropenem thank you Subjective Allergies: Coded Allergies: No Known Allergies (Unverified , 06/15/18) Objective Vital Signs Last 24 Hour Vital Signs Date Time Temp Pulse Resp B/P (MAP) Pulse Ox O2 Delivery O2 Flow Rate FiO2 06/19/18 15:59 97.9 72 18 122/63 (82) 100 97.9 06/19/18 12:00 98.2 78 20 118/73 (88) 96 98.2 06/19/18 09:30 Nasal Cannula 2.0 06/19/18 08:23 115/58 06/19/18 08:06 83 18 Nasal Cannula 2.0 28 06/19/18 08:06 Nasal Cannula 2.0 28 06/19/18 08:06 99 Nasal Cannula 2.0 28 06/19/18 08:00 74 06/19/18 08:00 98.1 75 20 115/58 (77) 96 98.1 06/19/18 04:00 98.1 70 20 113/56 (75) 99 98.1 06/19/18 04:00 73 06/19/18 00:00 98.6 77 20 123/65 (84) 95 98.6 06/19/18 00:00 79 06/18/18 21:00 Nasal Cannula 2.0 06/18/18 20:00 99.3 77 20 122/58 (79) 98 99.3 06/18/18 20:00 84 06/18/18 18:50 Nasal Cannula 2.0 28 06/18/18 18:50 99 Nasal Cannula 2.0 28 06/18/18 18:50 77 18 Nasal Cannula 2.0 28 Height (Feet): 5 Height (Inches): 5.00 Weight (Pounds): 150 Current Medications Medications (Trade) Dose Ordered Sig/Kashif Route PRN Reason Start Time Stop Time Status Last Admin Dose Admin Acetaminophen (Tylenol) 650 mg Q6H PRN GT Mild Pain/Temp > 100.5 06/19/18 14:20 07/15/18 14:19 Acetaminophen/ Hydrocodone Bitart ([place] 5/325) 1 tab Q6H PRN ORAL PAIN 4-10 06/19/18 14:23 06/22/18 14:22 Albuterol/ Ipratropium (Albuterol/ Ipratropium) 3 ml Q6H PRN HHN Shortness of Breath 06/19/18 14:21 06/20/18 14:20 Carbidopa/Levodopa (Sinemet 25/100) 1 tab THREE TIMES A DAY GT 06/19/18 18:00 07/15/18 08:59 Dextrose (Dextrose 50%) 25 ml STAT PRN IV Hypoglycemia 06/19/18 14:20 07/19/18 14:19 Dextrose (Dextrose 50%) 50 ml STAT PRN IV Hypoglycemia 06/19/18 14:20 07/19/18 14:19 Docusate Sodium (Colace) 100 mg BID GT 06/19/18 18:00 07/15/18 08:59 Folic Acid (Folate) 1 mg DAILY GT 06/20/18 09:00 07/15/18 08:59 Heparin Sodium (Porcine) (Heparin 5000 units/ml) 5,000 units EVERY 12 HOURS SUBQ 06/19/18 21:00 07/15/18 08:59 Insulin Aspart (NovoLOG) Q6HR SUBQ 06/19/18 18:00 07/17/18 11:29 Lansoprazole (Prevacid) 30 mg DAILY GT 06/20/18 09:00 07/15/18 08:59 Lisinopril (Zestril) 5 mg DAILY GT 06/20/18 09:00 07/15/18 08:59 Ondansetron HCl (Zofran) 4 mg Q8H PRN IVP Nausea & Vomiting 06/19/18 14:21 07/15/18 14:20 Piperacillin Sod/ Tazobactam Sod 4.5 gm/Dextrose 110 ml @ 27.5 mls/hr EVERY 8 HOURS IVPB 06/19/18 15:00 06/22/18 14:59 06/19/18 15:19 Sennosides (Senokot) 2 tab QHS GT 06/19/18 21:00 07/15/18 20:59 Sodium Chloride 1,000 ml @ 50 mls/hr Q20H IV 06/20/18 04:00 07/20/18 03:59 Vancomycin HCl (Vanco rx to dose) 1 ea DAILY PRN MISC Per rx protocol 06/19/18 14:21 10/4/18 14:20 Vancomycin/Sodium Chloride 250 ml @ 166.667 mls/hr Q12H IVPB 06/19/18 20:00 06/23/18 19:59 Meche Nascimento MD Jun 19, 2018 17:58
[2018-06-19 20:00] VITALS: BP 123/40
[2018-06-19] MEDS ORDERED: Vancomycin 750mg/NS 250ml 250 ML IVPB SCH (20:00)
[2018-06-19] MEDS ORDERED: Sennosides 8.6mg GT SCH (21:00)
[2018-06-19] MEDS: Meropenem 1 GM in D5W 110 ML IVPB SCH (21:16)
--- NOTE | 2018-06-19 23:30 | Consultation ---
DATE OF CONSULTATION: 06/19/2018 INFECTIOUS DISEASE CONSULTATION CONSULTING PHYSICIAN: Meche Nascimento M.D. ATTENDING PHYSICIAN: Beltran Santos M.D. REFERRING PHYSICIAN: Beltran Santos M.D. REASON FOR CONSULTATION: Sepsis, klebsiella and citrobacter UTI, pyelonephritis with sepsis, leukocytosis and fevers, Klebsiella with ESBL. REASON FOR ADMISSION: Sepsis. HISTORY OF PRESENT ILLNESS: This is a 78-year-old male who comes in to [facility] with sepsis, fevers and leukocytosis. He has altered mental status, and cannot give any further history. The patient's white count on admission was 17.0 and then went up as high as 19.6. He was febrile, SIRS criteria including heart rate over 90 and altered mental status. The patient's workup shows that he has a ESBL Klebsiella and Citrobacter UTI and likely pyelonephritis with sepsis, fevers and leukocytosis. The patient is currently on Zosyn and vancomycin. Chest x-ray is negative for pneumonia. The patient was placed on meropenem. The patient is on day #4 of effective antibiotics. Infectious Disease consultation was requested for antibiotics. The patient was placed on meropenem. MAR was noted. Orders were noted. Notes were reviewed. Case was discussed with RN. PAST MEDICAL HISTORY: The patient has past medical history of end-stage Parkinson disease, history of DNR, history of decubiti, history of G-tube, history of COPD, dysphagia, coronary artery disease, anemia, history of volume depletion, aspiration risk, anemia of iron deficiency, DNR. It looks like he is poorly responsive and demented also. He does also have history of atherosclerotic heart disease, in remission and anemia. He does have history of hypertension, also no history of diabetes. MEDICATIONS: Upon reviewing the MAR, he is on the following medications. He is on folic acid, lisinopril, Zestril, Prevacid, heparin, Senokot, vancomycin and Zosyn, which I have discontinued. I put him on meropenem 1 gram IV q.8 h. and docusate, carbidopa, insulin, hydrocodone, Zofran and acetaminophen. He was on Flagyl, which I will discontinue. Also, if he is still on, we will discontinue. Antibiotics, meropenem, Senokot, NovoLog insulin, I think as a p.r.n. He is on Tylenol, Robitussin, Tums, and albuterol. Outside medication noted and reconciliated. ALLERGIES: No known drug allergies. No antibiotic allergies. SOCIAL HISTORY: Negative for smoking, alcohol, or drug abuse. FAMILY HISTORY: Noncontributory. Negative for exposure to tuberculosis or cancer. REVIEW OF SYSTEMS: CONSTITUTIONAL: The patient has generalized fatigue and weakness. He has altered mental status, poorly responsive. He came with fevers. HEAD AND NECK: No acute distress. CARDIAC: No pressors. GASTROINTESTINAL: No nausea, vomiting, or diarrhea. GENITOURINARY: He has a Tiwari. PULMONARY: No significant congestion, shortness of breath, hemoptysis or secretions. SKIN: No rash or itching. EXTREMITY: No extremity pain. NEUROLOGIC: No seizures. He has generalized fatigue and poorly responsive. He did come in with fevers. He is nonverbal at this time. He does have stage II wounds. No pus drainage and discussed with nursing staff. He has generalized fatigue and weakness. Rest of the review of systems is otherwise limited. PHYSICAL EXAMINATION: VITAL SIGNS: Temperature 97.9 degrees, pulse rate 72, respiratory rate 18, blood pressure 152/63 and saturation 100%. Pulse rate has been as high as 93 and temperature has been as high as 100.4 degrees. GENERAL: Lethargic, weak. HEAD AND NECK: Oral exam, no thrush. Eye exam, no icterus. Neck seems to be supple. Normocephalic. HEART: No rubs, gallop or murmur. ABDOMEN: Soft. Positive bowel sounds. Nontender. LUNGS: Few bilateral rhonchi. No rales. Mostly clear bilaterally. SKIN: No rash. MUSCULOSKELETAL: No effusion. Legs are without cellulitis. PERIPHERAL VASCULAR: No cyanosis or gangrene. Wounds were reviewed. Not acutely infected. GENITOURINARY: He has a Tiwari and it is cloudy. LINE SITES: Without phlebitis. NEUROLOGIC: Generalized weakness. Poorly responsive. LABORATORY AND DIAGNOSTIC DATA: White count 13.1, hemoglobin 9.6, and platelet count is 250. Creatinine is 0.8. LFTs were noted. White count as high as 19.6. Urinalysis had 3+ leukocyte esterase, too many to count white blood cells and many bacteria. Cultures, blood cultures are negative to date. Urine culture grew out ESBL Klebsiella pneumoniae and Citrobacter. Sensitivities were noted. Chest x-ray showed no acute disease. No acute cardiopulmonary disease noted or reviewed. ASSESSMENT AND PLAN: 1. The patient has ESBL Klebsiella and Citrobacter UTI/pyelonephritis and complicated UTI with sepsis, leukocytosis and fevers. Continue meropenem to cover both pathogens including ESBL pathogen. This is day #4 of effective antibiotics. Zosyn did have some coverage, however, carbapenems of the drug of choice for prolonged treatment for ESBL pathogens. Continue meropenem for ESBL Klebsiella and Citrobacter UTI, pyelonephritis and sepsis. Watch leukocytosis. Watch fevers. Watch sepsis clinically. Continue meropenem for now. Plan on 7 more days of treatment. This will complete a 10-day course of antibiotics, which should be sufficient. Blood cultures are negative so far. We will get check followup chest x-ray, as the patient at risk for aspiration pneumonia, however, chest x-ray initially was negative. 2. Hypertension. Blood pressure treatment per primary. 3. 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 The patient is poorly responsive. 4. End-stage Parkinson disease. 5. DNR. 6. Decubiti. 7. Skin care protocol. 8. Dysphagia, G-tube. 9. COPD. 10. Coronary artery disease. 11. Anemia. 12. Volume depletion. 13. Allergies are negative. 14. Social history is negative. 15. Family history is noncontributory. 16. MAR was noted. 17. Case discussed with RN. 18. Continue treatment per primary consultants. 19. Notes were reviewed. 20. Orders were entered. Meche Nascimento M.D. DR: MEGHAN JOB#: [id number] CC:
[2018-06-20] VITALS: BP 127/60
[2018-06-20] MEDS: NovoLOG Insulin Flexpen SUBQ SCH ×3 (02:01→12:45)
[2018-06-20 04:00] VITALS: BP 128/60
[2018-06-20] MEDS ORDERED: NS w/KCl 20mEq 1,000 ML IV SCH (04:00)
[2018-06-20] MEDS: Meropenem 1 GM in D5W 110 ML IVPB SCH (06:24)
[2018-06-20 08:00] VITALS: BP 141/80
[2018-06-20 08:11] LABS: BASOPHILS % (AUTO) 0.9 % (0.0-2.0); EOSINOPHILS % (AUTO) 2.2 % (0.0-3.0); HEMATOCRIT 28.2 % (42.0-52.0); HEMOGLOBIN 9.3 G/DL (14.2-18.0); LYMPHOCYTES % (AUTO) 14.1 % (20.0-45.0); MEAN CORPUSCULAR VOLUME 90 FL (80-99); MONOCYTES % (AUTO) 6.8 % (1.0-10.0); NEUTROPHILS % (AUTO) 76.1 % (45.0-75.0); PLATELET COUNT 282 K/UL (150-450); RED BLOOD COUNT 3.13 M/UL (4.70-6.10); RED CELL DISTRIBUTION WIDTH 12.3 % (11.6-14.8); WHITE BLOOD COUNT 13.5 K/UL (4.8-10.8)
[2018-06-20 08:28] LABS: ALANINE AMINOTRANSFERASE 42 U/L (12-78); ALBUMIN 1.9 G/DL (3.4-5.0); ALBUMIN/GLOBULIN RATIO 0.4 (1.0-2.7); ALKALINE PHOSPHATASE 67 U/L (46-116); ANION GAP 3 mmol/L (5-15); ASPARTATE AMINO TRANSFERASE 49 U/L (15-37); BILIRUBIN,TOTAL 0.3 MG/DL (0.2-1.0); BLOOD UREA NITROGEN 25 mg/dL (7-18); CALCIUM 8.5 MG/DL (8.5-10.1); CARBON DIOXIDE 29 MMOL/L (21-32); CHLORIDE 101 MMOL/L (98-107); CREATININE 0.8 MG/DL (0.55-1.30); POTASSIUM 4.3 MMOL/L (3.5-5.1); SODIUM 133 MMOL/L (136-145)
--- NOTE | 2018-06-20 08:59 | Diagnostic Imaging Report ---
Indication: Cough Technique: One view of the chest Comparison: 06/15/2018 Findings: The lungs and pleural spaces are clear. The heart size is normal. Less optimal inspiration currently. No significant interim change Impression: No acute process
[2018-06-20] MEDS ORDERED: Lisinopril 2.5mg tab GT SCH (09:00)
[2018-06-20] MEDS: Levodopa/Carbidopa 25/100 tab GT SCH ×2 (09:12→12:28)
[2018-06-20] MEDS: Docusate 100mg/10ml Liq GT SCH (09:12)
[2018-06-20] MEDS: Heparin 5000 units/ml inj SUBQ SCH (09:17)
[2018-06-20 12:00] VITALS: BP 123/60
--- NOTE | 2018-06-20 12:44 | General Progress Note ---
Assessment/Plan Assessment/Plan [facility] - IVF. Check labs. B Pneumonia IV Abx. ESBL Klebsiela - adjusted Abx + ID to advise. Modify mood altering meds. DW pt's . Had several runs of V Tach last night. To check with Cardiology. Done. ECF in AM if no objection from consultants. DC to SNF. Subjective Allergies: Coded Allergies: No Known Allergies (Unverified , 06/15/18) Subjective Confused Objective Last 24 Hour Vital Signs Date Time Temp Pulse Resp B/P (MAP) Pulse Ox O2 Delivery O2 Flow Rate FiO2 06/20/18 09:12 141/80 06/20/18 09:00 Nasal Cannula 2.0 06/20/18 08:01 Nasal Cannula 2.0 28 06/20/18 08:01 97 Nasal Cannula 2.0 28 06/20/18 08:01 85 18 Nasal Cannula 2.0 28 06/20/18 08:00 98.1 95 18 141/80 (100) 98 98.1 06/20/18 04:00 97.0 87 18 128/60 (82) 96 97.0 06/20/18 00:00 97.2 82 19 127/60 (82) 100 97.2 06/19/18 21:00 Nasal Cannula 2.0 06/19/18 20:00 97.0 90 17 123/40 (67) 100 97.0 06/19/18 19:57 Nasal Cannula 2.0 28 06/19/18 19:57 99 Nasal Cannula 2.0 28 06/19/18 19:57 82 18 Nasal Cannula 2.0 28 06/19/18 15:59 97.9 72 18 122/63 (82) 100 97.9 Intake and Output 06/19/18 06/20/18 19:00 07:00 Intake Total 723.334 ml Output Total 800 ml 1350 ml Balance -76.666 ml -1350 ml IV Total 443.334 ml Tube Feeding 280 ml Output Urine Total 800 ml 1350 ml Laboratory Tests 06/20/18 06:15: White Blood Count 13.5H, Red Blood Count 3.13L, Hemoglobin 9.3L, Hematocrit 28.2L, Mean Corpuscular Volume 90, Mean Corpuscular Hemoglobin 29.7, Mean Corpuscular Hemoglobin Concent 33.1, Red Cell Distribution Width 12.3, Platelet Count 282, Mean Platelet Volume 7.8, Neutrophils (%) (Auto) 76.1H, Lymphocytes ( %) (Auto) 14.1L, Monocytes (%) (Auto) 6.8, Eosinophils (%) (Auto) 2.2, Basophils (%) (Auto) 0.9, Sodium Level 133L, Potassium Level 4.3, Chloride Level 101, Carbon Dioxide Level 29, Anion Gap 3L, Blood Urea Nitrogen 25H, Creatinine 0.8, Estimat Glomerular Filtration Rate , Glucose Level 180H, Calcium Level 8.5, Magnesium Level 2.0, Total Bilirubin 0.3, Aspartate Amino Transf (AST/SGOT) 49H, Alanine Aminotransferase (ALT/SGPT) 42, Alkaline Phosphatase 67, Total Protein 6.2L, Albumin 1.9L, Globulin 4.3, Albumin/ Globulin Ratio 0.4L Height (Feet): 5 Height (Inches): 5.00 Weight (Pounds): 137 Objective [place]. CV Rr Lungs B ronchi. Abd SNT. BS +. PEg. E contractures. Skin - decubitus ulcers. Beltran Santos MD Jun 20, 2018 12:44
[2018-06-20] MEDS ORDERED: LISINOPRIL5 MG GT (12:49)
[2018-06-20] MEDS ORDERED: Levodopa/Carbidopa 25/100 GT (12:49)
[2018-06-20] MEDS ORDERED: SENNA-GEN8.6 M1 GT (12:49)
[2018-06-20] MEDS ORDERED: Acetaminophen GT (12:49)
[2018-06-20] MEDS ORDERED: HEPARIN SO5000 UNIT2 SUBQ (12:49)
[2018-06-20] MEDS ORDERED: NOVOLOG100 UNITS1 SUBQ (12:49)
[2018-06-20] MEDS ORDERED: ZOFRAN 4 MG4 MG/2 ML IVP (12:49)
[2018-06-20] MEDS ORDERED: NORCO 5-325 TA1 EACH ORAL (12:49)
[2018-06-20] MEDS ORDERED: COLACE100 MG/10 GT (12:49)
[2018-06-20] MEDS ORDERED: DUONEB 0.5-3(2.53 ML HHN (12:49)
[2018-06-20] MEDS ORDERED: LANSOPRAZOLE30 MG GT (12:49)
[2018-06-20] MEDS ORDERED: Meropenem 1 GM in NS 110 ML IVPB SCH (14:00)
[2018-06-20] MEDS ORDERED: NOVOLOG100 UNIT/4 SQ (14:35)
[2018-06-20] MEDS ORDERED: MEROPENEM1 GM IV (14:35)
[2018-06-20] MEDS ORDERED: DOCUSATE S50 MG/5 ML GT (14:37)
--- NOTE | 2018-06-20 16:09 | Cardiology Report ---
APPROVED REPORT EKG Measurement Heart [id number] ND [id number] Normal sinus rhythm Normal ECG
--- NOTE | 2018-06-21 10:41 | Discharge Summary ---
Discharge Summary Discharge Summary _ DATE OF ADMISSION: 06/15/2018 DATE OF DISCHARGE: 06/20/2018 CONSULTANTS: Dr. Meche Bell BRIEF HOSPITAL COURSE: Patient is a 78-year-old male, retirement resident, who was taken to [facility] for evaluation of fever and shortness of breath. He has medical history significant for end-stage Parkinson's disease, COPD, coronary artery disease, anemia of chronic disease, dysphagia status post G-tube, and had multiple decubiti ulcers. He is DO NOT RESUSCITATE. On evaluation at ED, blood work showed leukocytosis, WBC was elevated to 17. Glucose was 395. Urinalysis showed 3+ leukocyte esterase, 10-15 RBC, too many to count WBC, 4+ occult blood, 3+ protein, 1+ glucose, 1+ ketone with many bacteria. Chest x-ray showed no effusion, no pneumothorax with right lower lung infiltrate read by ED doctor. Patient was pancultured. Patient was admitted to telemetry for sepsis, right lower lobe pneumonia, most likely aspiration pneumonia. He was continued on home meds, except Fleet enema and muscle relaxants. He was given IV rehydration and was started on IV antibiotic Vancomycin and Zosyn. G- tube feedings were restarted. Leukocytosis progressed. Patient was febrile. Urine culture with growth of Citrobacter, Klebsiella ESBL and Pseudomonas. Infectious disease specialist was consulted. Antibiotic was switched to meropenem. Blood culture did not isolate any growth. He had an episode of nonsustained ventricular tachycardia. [employer] Manager was consulted. Ventricular tachycardia was nonsustained, per cardiology nurse did not require any specific treatment. Heart rate was appropriate and did not have any indication to be started on beta marlon. He came in with multiple pressure sores. He was given local wound care. He eventually defervesced. WBC down trended. Patient was eventually discharged to SNF. FINAL DIAGNOSES: ESBL Klebsiella and Citrobacter UTI/pyelonephritis and complicated UTI with sepsis, leukocytosis and fever Pneumonia Acute kidney injury Hypertension End-stage Parkinson's disease COPD Dysphagia on G-tube Coronary artery disease Anemia of chronic disease Sacral stage III pressure ulcer, present on admission Nonsustained ventricular tachycardia DISPOSITION: Patient was discharged to [facility]. DISCHARGE MEDICATIONS: Refer to Discharge Medication List. I have been assigned to dictate discharge summary on this account, and I was not involved in the patient's management. Keily Moreno NP Jun 21, 2018 10:41
== END 2018-06-20 17:47 | DRG 871 ==
LOC: EDBD 00:01 → EMR 00:16 → 2E 00:51 → EDBEDREQ 00:57 → 4E 06-19 13:56
DX: A41.9 Sepsis, unspecified organism (principal); J69.0 Pneumonitis due to inhalation of food and vomit; L89.153 Pressure ulcer of sacral region, stage 3; L89.93 Pressure ulcer of unspecified site, stage 3; N17.9 Acute kidney failure, unspecified; N39.0 Urinary tract infection, site not specified; Z43.1 Encounter for attention to gastrostomy; I47.2 Ventricular tachycardia; N12 Tubulo-interstitial nephritis, not specified as acute or chronic; J44.9 Chronic obstructive pulmonary disease, unspecified; G20 Parkinson's disease; F02.80 Dementia in other diseases classified elsewhere, unspecified severity, without behavioral disturbance, psychotic disturbance, mood disturbance, and anxiety; Z66 Do not resuscitate; B96.1 Klebsiella pneumoniae [K. pneumoniae] as the cause of diseases classified elsewhere; Z16.12 Extended spectrum beta lactamase (ESBL) resistance; B96.89 Other specified bacterial agents as the cause of diseases classified elsewhere; I10 Essential (primary) hypertension; R13.10 Dysphagia, unspecified; I25.10 Atherosclerotic heart disease of native coronary artery without angina pectoris; D63.8 Anemia in other chronic diseases classified elsewhere
CPT/HCPCS: 36415; 71045; 80053; 80202; 81003; 82550; 82553; 82962; 83605; 83735; 84484; 85007; 85025; 85610; 85730; 87040; 87081; 87086; 87181; 93005; 93306; 94664; 94760; 96361; 96365; 96368; 99291; J1815

== ENCOUNTER 2018-07-14 11:05 | Inpatient (IN) | payer MEDICARE, MEDICAID ==
[~2018-07-14] VITALS: Ht 172.7 cm; Wt 57.8 kg
[2018-07-14 11:05] VITALS: BP 127/65
[~2018-07-14 11:05] MED LIST: ACETAMINOPHEN325 M1 ORAL; ADULT WAL-100 MG/5 M ORAL; Acetaminophen GT; CALCIUM CARBON500 M1 PO; COLACE100 MG ORAL; COLACE100 MG/10 GT; DOCUSATE S50 MG/5 ML GT; DUONEB 0.5-3(2.53 ML HHN; ENEMA133 M1 RC; FOLIC ACID1 MG ORAL; HEPARIN SO5000 UNIT2 SUBQ; ISOSORBIDE DINIT5 MG ORAL; ISOSOURCE HN1500 ML PO; LANSOPRAZOLE30 MG GT; LISINOPRIL5 MG GT; LISINOPRIL5 MG ORAL; Levodopa/Carbidopa 25/100 GT; MEROPENEM1 GM IV; NORCO 5-325 TA1 EACH ORAL; NOVOLOG100 UNIT/4 SQ; NOVOLOG100 UNITS1 SUBQ; PANTOPRAZOLE SO40 MG ORAL; PRO-STAT LIQUID30 ML ORAL; SENNA-GEN8.6 M1 GT; SENNA8.6 M2 PO; SINEMET 25-1001 EAC1 ORAL; TIZANIDINE HCL4 MG ORAL; ZOFRAN 4 MG4 MG/2 ML IVP; ZOFRAN4 M3 ORAL
[2018-07-14] MEDS ORDERED: Sodium Chloride 500ML 500 ML IV ONE (11:13)
[2018-07-14] MEDS: Ipratropium 0.02% Inh Soln 2.5ml UD HHN SCH ×3 (11:34→11:49)
[2018-07-14] MEDS: Albuterol ud Inhalation HHN SCH ×3 (11:35→11:49)
--- NOTE | 2018-07-14 11:57 | Infectious Diseases Prog Note ---
Assessment/Plan Assessment/Plan Full consult to follow: sepsis ams sob ? pna ? uti allergies -negative hx esbl vancomycin and meropenem check cultures, labs and chest x-ray thank you Subjective Allergies: Coded Allergies: No Known Allergies (Unverified , 06/15/18) Objective Vital Signs Last 24 Hour Vital Signs Date Time Temp Pulse Resp B/P (MAP) Pulse Ox O2 Delivery O2 Flow Rate FiO2 07/14/18 11:15 100 07/14/18 11:15 78 18 100 Non-Rebreather 15.0 100 07/14/18 11:15 78 18 Non-Rebreather 15.0 100 07/14/18 10:57 73 15 127/65 100 Room Air Height (Feet): 5 Height (Inches): 8.00 Weight (Pounds): 150 Laboratory Tests Test 07/14/18 11:21 07/14/18 11:22 White Blood Count Pending Red Blood Count Pending Hemoglobin Pending Hematocrit Pending Mean Corpuscular Volume Pending Mean Corpuscular Hemoglobin Pending Mean Corpuscular Hemoglobin Concent Pending Red Cell Distribution Width Pending Platelet Count Pending Mean Platelet Volume Pending Neutrophils (%) (Auto) Pending Lymphocytes (%) (Auto) Pending Monocytes (%) (Auto) Pending Eosinophils (%) (Auto) Pending Basophils (%) (Auto) Pending Urine Color Pending Urine Appearance Pending Urine pH Pending Urine Specific [place] Pending Urine Protein Pending Urine Glucose (UA) Pending Urine Ketones Pending Urine Blood Pending Urine Nitrite Pending Urine Bilirubin Pending Urine Urobilinogen Pending Urine Leukocyte Esterase Pending Sodium Level Pending Potassium Level Pending Chloride Level Pending Carbon Dioxide Level Pending Blood Urea Nitrogen Pending Creatinine Pending Estimat Glomerular Filtration Rate Pending Glucose Level Pending Lactic Acid Level Pending Calcium Level Pending Total Bilirubin Pending Aspartate Amino Transf (AST/SGOT) Pending Alanine Aminotransferase (ALT/SGPT) Pending Alkaline Phosphatase Pending Total Creatine Kinase Pending Creatine Kinase MB Pending Troponin I Pending Pro-B-Type Natriuretic Peptide Pending Total Protein Pending Albumin Pending Globulin Pending Arterial Blood pH 7.507 (7.350-7.450) Arterial Blood Partial Pressure CO2 35.8 mmHg (35.0-45.0) Arterial Blood Partial Pressure O2 277.9 mmHg (75.0-100.0) H Arterial Blood HCO3 27.7 mmol/L (22.0-26.0) H Arterial Blood Oxygen Saturation 99.0 % (95-100) Arterial Blood Base Excess 4.6 (-2-2) H Raudel Test Positive Meche Nascimento MD Jul 14, 2018 11:57
[2018-07-14] MEDS ORDERED: Meropenem 1 GM in NS 55 ML IVPB ONE (12:00)
[2018-07-14 12:06] LABS: APPEARANCE,URINE CLEAR; BILIRUBIN, URINE NEGATIVE (NEGATIVE); COLOR,URINE PALE YELLOW; GLUCOSE, URINE (UA) NEGATIVE (NEGATIVE); KETONES,URINE NEGATIVE (NEGATIVE); LEUKOCYTE ESTERASE ,URINE NEGATIVE (NEGATIVE); NITRITE,URINE NEGATIVE (NEGATIVE); PH,URINE 6 (4.5-8.0); PROTEIN,URINE NEGATIVE (NEGATIVE); UROBILINOGEN,URINE NORMAL MG/DL (0.0-1.0)
[2018-07-14 12:09] LABS: ANION GAP 5 mmol/L (5-15); BLOOD UREA NITROGEN 29 mg/dL (7-18); CALCIUM 9.4 MG/DL (8.5-10.1); CARBON DIOXIDE 26 MMOL/L (21-32); CHLORIDE 99 MMOL/L (98-107); CREATININE 0.7 MG/DL (0.55-1.30); POTASSIUM 4.7 MMOL/L (3.5-5.1); SODIUM 130 MMOL/L (136-145)
[2018-07-14 12:30] LABS: ALANINE AMINOTRANSFERASE 24 U/L (12-78); ALBUMIN 2.1 G/DL (3.4-5.0); ALBUMIN/GLOBULIN RATIO 0.4 (1.0-2.7); ALKALINE PHOSPHATASE 75 U/L (46-116); ASPARTATE AMINO TRANSFERASE 22 U/L (15-37); BILIRUBIN,TOTAL 0.3 MG/DL (0.2-1.0); CKMB 2.2 NG/ML (0.0-3.6); CREATINE KINASE 77 U/L (26-308)
--- NOTE | 2018-07-14 12:36 | Diagnostic Imaging Report ---
EXAM: XR Chest, 1 View CLINICAL HISTORY: Shortness of breath TECHNIQUE: Frontal view of the chest. COMPARISON: Chest x-rays dated 06/20/18 FINDINGS: Lungs: Patchy opacity in the medial left lower lung. Mild diffusely increased interstitial markings. Pleural space: Unremarkable. The costophrenic angles are sharp. No visible pneumothorax. Heart: Unremarkable. No cardiomegaly. Mediastinum: Unremarkable. Bones/joints: Unremarkable. Tubes, lines and devices: EKG leads overlie the thorax. IMPRESSION: 1. Patchy opacity in the medial left lower lung. This may represent atelectasis versus pneumonia. 2. Mild diffusely increased interstitial markings. This is not cynically changed compared to the prior exam and likely related to chronic senescent changes although differential diagnosis may also include an underlying interstitial pneumonitis.
[2018-07-14] MEDS ORDERED: DUONEB 0.5-3(2.53 ML HHN (12:46)
[2018-07-14] MEDS ORDERED: HUMALOG100 UNIT/4 SUBQ (12:46)
[2018-07-14] MEDS ORDERED: ZOFRAN4 M3 ORAL (12:46)
[2018-07-14] MEDS ORDERED: HEPARIN SO5000 UNIT2 SUBQ (12:46)
[2018-07-14] MEDS ORDERED: FAMOTIDINE20 MG ORAL (12:46)
[2018-07-14] MEDS ORDERED: Albuterol/Ipratropium 3ml neb HHN PRN (12:52)
[2018-07-14 13:05] VITALS: BP 128/69
[2018-07-14 13:08] LABS: BASOPHILS % (AUTO) 0.4 % (0.0-2.0); EOSINOPHILS % (AUTO) 0.9 % (0.0-3.0); HEMATOCRIT 33.5 % (42.0-52.0); HEMOGLOBIN 10.9 G/DL (14.2-18.0); LYMPHOCYTES % (AUTO) 21.5 % (20.0-45.0); MEAN CORPUSCULAR VOLUME 90 FL (80-99); MONOCYTES % (AUTO) 4.6 % (1.0-10.0); NEUTROPHILS % (AUTO) 72.6 % (45.0-75.0); PLATELET COUNT 327 K/UL (150-450); RED BLOOD COUNT 3.71 M/UL (4.70-6.10); RED CELL DISTRIBUTION WIDTH 12.5 % (11.6-14.8); WHITE BLOOD COUNT 12.9 K/UL (4.8-10.8)
--- NOTE | 2018-07-14 14:20 | Emergency Room Report ---
History of Present Illness General Chief Complaint: Dyspnea/Respdistress Source: Patient, Medical Record Present Illness HPI 78-year-old male presents ED for evaluation of shortness of breath. Coming from [facility] facility. Has been short of breath 1 day. Hypoxic at facility. Placed on nonrebreather by EMS. Patient is altered and at baseline. Patient is DO NOT RESUSCITATE, selective treatment. Patient unable to provide any additional history at this time. No reported fevers or chills. No reported chest pain. History of ESBL. No other aggravating relieving factors. Denies any other associated symptoms Allergies: Coded Allergies: No Known Allergies (Unverified , 06/15/18) Patient History Past Medical History: DM, HTN, CHF, COPD Past Surgical History: other - Gtube Social History: Denies: smoking, alcohol use, drug use Immunizations: UTD Reviewed Nursing Documentation: PMH: Agreed; PSxH: Agreed Nursing Documentation-PMH Hx Cardiac Problems: Yes - Heart Failure Hx Hypertension: Yes Hx COPD: Yes Hx Diabetes: Yes - Type 2 Hx Cancer: No Hx Gastrointestinal Problems: Yes - gtube Hx Dialysis: No - pressure ulcer on sacral & left hip Hx Neurological Problems: Yes - parkinson's Hx Parkinson's Disease: Yes Hx Dysphasia: Yes Review of Systems All Other Systems: limited Physical Exam Vital Signs Date Time Temp Pulse Resp B/P (MAP) Pulse Ox O2 Delivery O2 Flow Rate FiO2 07/14/18 10:57 73 15 127/65 100 Room Air 07/14/18 11:15 15.0 100 Sp02 EP Interpretation: reviewed, normal General Appearance: no apparent distress, lethargic Head: normocephalic Eyes: bilateral eye normal inspection, bilateral eye PERRL ENT: normal ENT inspection Neck: normal inspection Respiratory: decreased breath sounds, wheezing Cardiovascular #1: regular rate, rhythm, no edema Gastrointestinal: normal bowel sounds, non tender, soft, non-distended, no guarding, no rebound Rectal: deferred Genitourinary: no CVA tenderness Musculoskeletal: normal inspection Neurologic: other - lethargic Psychiatric: other - lethargic Skin: normal inspection Lymphatic: normal inspection Medical Decision Making Diagnostic Impression: Primary Impression: COPD exacerbation Additional Impression: Dyspnea Qualified Codes: R06.00 - Dyspnea, unspecified ER Course Hospital Course 63-year-old F presenting to ED with SOB. h/o COPD Differential diagnoses include: Pneumonia, CHF exacerbation, pneumothorax, fluid overload Clinical course Patient placed on stretcher. On personnel monitor with stable vitals. After initial history and physical, I ordered nebulizer treatments. I ordered labs, IV fluids, EKG, chest x-ray, blood cultures, UA. Labs - no leukocytosis noted, hemoglobin/hematocrit stable, electrolytes okay, lactate okay, troponins negative, UA negative CXR - hyperinflated lungs. LLL infiltrate EKG - NSR, no acute ischemic changes interpreted by me ABG shows no significant hypoxia or hypercapnia Given IV fluids. Given antibiotics. Case discussed with Dr. Giang and he agreed to the patient to his service for further care and support I feel this is a highly complex case requiring extensive working including EKG/ Rhythm strip, Xray/CT/US, Blood/urine lab work, repeat exams while in ED, and administration of strong opiates/narcotics for pain control, admission to hospital or close patient follow up. Diagnosis - COPD exacerbation, dyspnea Patient admitted to telemetry in serious condition Labs Test 07/14/18 11:21 07/14/18 11:22 07/14/18 12:55 Urine Color Pale yellow Urine Appearance Clear Urine pH 6 (4.5-8.0) Urine Specific [place] 1.015 (1.005-1.035) Urine Protein Negative (NEGATIVE) Urine Glucose (UA) Negative (NEGATIVE) Urine Ketones Negative (NEGATIVE) Urine Blood Negative (NEGATIVE) Urine Nitrite Negative (NEGATIVE) Urine Bilirubin Negative (NEGATIVE) Urine Urobilinogen Normal MG/DL (0.0-1.0) Urine Leukocyte Esterase Negative (NEGATIVE) Sodium Level 130 MMOL/L (136-145) Potassium Level 4.7 MMOL/L (3.5-5.1) Chloride Level 99 MMOL/L (98-107) Carbon Dioxide Level 26 MMOL/L (21-32) Anion Gap 5 mmol/L (5-15) Blood Urea Nitrogen 29 mg/dL (7-18) Creatinine 0.7 MG/DL (0.55-1.30) Estimat Glomerular Filtration Rate mL/min (>60) Glucose Level 113 MG/DL (74-106) Lactic Acid Level 1.30 mmol/L (0.4-2.0) Calcium Level 9.4 MG/DL (8.5-10.1) Total Bilirubin 0.3 MG/DL (0.2-1.0) Aspartate Amino Transf (AST/SGOT) 22 U/L (15-37) Alanine Aminotransferase (ALT/SGPT) 24 U/L (12-78) Alkaline Phosphatase 75 U/L (46-116) Total Creatine Kinase 77 U/L (26-308) Creatine Kinase MB 2.2 NG/ML (0.0-3.6) Creatine Kinase MB Relative Index 2.8 Troponin I 0.000 ng/mL (0.000-0.056) Pro-B-Type Natriuretic Peptide 136 pg/mL (0-125) Total Protein 7.2 G/DL (6.4-8.2) Albumin 2.1 G/DL (3.4-5.0) Globulin 5.1 g/dL Albumin/Globulin Ratio 0.4 (1.0-2.7) Arterial Blood pH 7.507 (7.350-7.450) Arterial Blood Partial Pressure CO2 35.8 mmHg (35.0-45.0) Arterial Blood Partial Pressure O2 277.9 mmHg (75.0-100.0) Arterial Blood HCO3 27.7 mmol/L (22.0-26.0) Arterial Blood Oxygen Saturation 99.0 % (95-100) Arterial Blood Base Excess 4.6 (-2-2) Raudel Test Positive White Blood Count 12.9 K/UL (4.8-10.8) Red Blood Count 3.71 M/UL (4.70-6.10) Hemoglobin 10.9 G/DL (14.2-18.0) Hematocrit 33.5 % (42.0-52.0) Mean Corpuscular Volume 90 FL (80-99) Mean Corpuscular Hemoglobin 29.4 PG (27.0-31.0) Mean Corpuscular Hemoglobin Concent 32.5 G/DL (32.0-36.0) Red Cell Distribution Width 12.5 % (11.6-14.8) Platelet Count 327 K/UL (150-450) Mean Platelet Volume 6.5 FL (6.5-10.1) Neutrophils (%) (Auto) 72.6 % (45.0-75.0) Lymphocytes (%) (Auto) 21.5 % (20.0-45.0) Monocytes (%) (Auto) 4.6 % (1.0-10.0) Eosinophils (%) (Auto) 0.9 % (0.0-3.0) Basophils (%) (Auto) 0.4 % (0.0-2.0) EKG Diagnostic Results Rate: normal Rhythm: NSR ST Segments: no acute changes ASA given to the pt in ED: No Rhythm Strip Diag. Results EP Interpretation: yes Rhythm: NSR, no PVC's, no ectopy Chest X-Ray Diagnostic Results Chest X-Ray Diagnostic Results : Chest X-Ray Ordered: Yes # of Views/Limited/Complete: 1 View Indication: Shortness of Breath EP Interpretation: Yes Interpretation: no pneumothorax, other - LLL infiltrate Impression: Other - PNA Electronically Signed by: Electronically signed by Macario Sunshine MD Last Vital Signs Date Time Temp Pulse Resp B/P (MAP) Pulse Ox O2 Delivery O2 Flow Rate FiO2 07/14/18 12:20 100 20 100 Nasal Cannula 3.0 32 07/14/18 10:57 127/65 Status: improved Disposition: ADMITTED INPATIENT Condition: Serious Referrals: Beltran Santos MD (PCP) Macario Sunshine MD Jul 14, 2018 14:20
[2018-07-14 15:00] VITALS: BP 145/70
--- NOTE | 2018-07-14 17:15 | History and Physical Report ---
DATE OF ADMISSION: 07/14/2018 CHIEF COMPLAINT: Shortness of breath. HISTORY OF PRESENT ILLNESS: This is a 78-year-old male from [facility]. For the last several days, the patient has been developing gradually progressive shortness of breath. During the last 24 hours, the patient was placed on continuous oxygen therapy with close O2 saturation monitoring. The oxygen saturation was hovering between 92% to 93% on this high oxygen in hospital, but today earlier dropped to 70%. The patient developed severe dyspnea and was transferred to this hospital emergency department for further evaluation. The patient has history of severe chronic obstructive pulmonary disease. He was discharged from [facility] last week. PAST MEDICAL HISTORY: 1. Severe organic brain syndrome. 2. Parkinson's dementia. 3. Parkinson disease. 4. DNR. 5. Recent ESBL Klebsiella urosepsis. 6. Recurrent aspiration pneumonia. 7. Status post gastrostomy. 8. Hypertensive cardiovascular disease. 9. Insulin-treated type 2 diabetes mellitus. 10. Malnutrition. 11. Recurrent volume repletion. 12. Recurrent encephalopathy. MEDICATIONS: 1. Tube feeding Glytrol 75 mL per hour. 2. Tylenol p.r.n. 3. Vitamin C. 4. Carbidopa/L-dopa. 5. Sodium docusate. 6. Famotidine. 7. Iron sulfate via G-tube. 8. Subcutaneous heparin 5,000 units subcutaneous q.12 hours. 9. Lantus 5 units q.a.m. and nightly. 10. Insulin lispro sliding scale. 11. DuoNeb inhalation. 12. Multivitamins. 13. Santyl ointment therapy. 14. Zinc sulfate. ALLERGIES: No known drug allergies. FAMILY HISTORY: Unremarkable. SOCIAL HISTORY: The patient has been in the nursing homes for the last several months. 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 She has been very involved. REVIEW OF SYSTEMS: Unable to obtain secondary to his mental status. PHYSICAL EXAMINATION: GENERAL: This is an elderly cachectic male, who is nonverbal. VITAL SIGNS: Blood pressure 127/65, pulse 73, respirations 15, and O2 saturation is 100% on room air. HEENT: The head is normocephalic and atraumatic. He has very poor oral dentition with no teeth. NECK: Supple. Trachea midline. There was no lymphadenopathy or thyromegaly. There was no jugular venous distention. There are no carotid bruits. LUNGS: Bilateral rhonchi. HEART: Regular rate and rhythm without rubs, murmurs, or gallops. ABDOMEN: Scaphoid, soft, and nontender. Bowel sounds were active. EXTREMITIES: No clubbing, cyanosis, or edema. NEUROLOGIC: He is alert, nonverbal. There were no lateralizing signs. He has increased alpha rigidity in all four extremities. LABORATORY AND ANCILLARY DATA: ABGs on current therapy, pH 7.507, pCO2 36, pO2 278, bicarbonate 28. The rest of the labs are pending. ASSESSMENT: 1. Respiratory distress. 2. Severe organic brain syndrome. 3. Parkinson's dementia. 4. Parkinson disease. 5. DNR. 6. Recent ESBL Klebsiella urosepsis. 7. Recurrent aspiration pneumonia. 8. Status post gastrostomy. 9. Hypertensive cardiovascular disease. 10. Insulin-treated type 2 diabetes mellitus. 11. Malnutrition. 12. Recurrent volume repletion. 13. Recurrent encephalopathy. PLAN: 1. Admit to telemetry. 2. Continue meropenem. 3. Continue care home medications. 4. Pulmonary and Infectious Disease consultations. Beltran Santos M.D. DR: INDIA/LESTER JOB#: [id number] CC: JOSE MANUEL
[2018-07-14] MEDS: Vancomycin 750mg/NS 250ml IVPB SCH (18:56)
[2018-07-14] MEDS ORDERED: Acetaminophen 650mg/20.3ml GT PRN (19:45)
[2018-07-14 20:00] VITALS: BP 142/71
[2018-07-14] MEDS: Docusate 100mg/10ml Liq GT SCH (20:37)
[2018-07-14] MEDS: Heparin 5000 units/ml inj SUBQ SCH (20:38)
[2018-07-14] MEDS ORDERED: Docusate 100mg cap ORAL SCH (21:00)
[2018-07-15] VITALS: BP 134/72
[2018-07-15 04:00] VITALS: BP 150/68
[2018-07-15] MEDS: Vancomycin 750mg/NS 250ml IVPB SCH ×2 (05:26→16:42)
[2018-07-15 07:18] LABS: BASOPHILS % (AUTO) 0.6 % (0.0-2.0); EOSINOPHILS % (AUTO) 0.7 % (0.0-3.0); HEMATOCRIT 29.7 % (42.0-52.0); LYMPHOCYTES % (AUTO) 12.1 % (20.0-45.0); MEAN CORPUSCULAR VOLUME 89 FL (80-99); MONOCYTES % (AUTO) 6.3 % (1.0-10.0); NEUTROPHILS % (AUTO) 80.4 % (45.0-75.0); PLATELET COUNT 272 K/UL (150-450); RED BLOOD COUNT 3.32 M/UL (4.70-6.10); RED CELL DISTRIBUTION WIDTH 12.4 % (11.6-14.8); WHITE BLOOD COUNT 12.2 K/UL (4.8-10.8)
[2018-07-15 07:46] LABS: ALANINE AMINOTRANSFERASE 29 U/L (12-78); ALBUMIN 2.2 G/DL (3.4-5.0); ALBUMIN/GLOBULIN RATIO 0.5 (1.0-2.7); ALKALINE PHOSPHATASE 70 U/L (46-116); ANION GAP 7 mmol/L (5-15); ASPARTATE AMINO TRANSFERASE 17 U/L (15-37); BILIRUBIN,TOTAL 0.4 MG/DL (0.2-1.0); BLOOD UREA NITROGEN 26 mg/dL (7-18); CARBON DIOXIDE 28 MMOL/L (21-32); CHLORIDE 101 MMOL/L (98-107); CREATININE 0.8 MG/DL (0.55-1.30); POTASSIUM 4.4 MMOL/L (3.5-5.1); SODIUM 136 MMOL/L (136-145)
[2018-07-15 08:00] VITALS: BP 144/73
[2018-07-15] MEDS: Docusate 100mg/10ml Liq GT SCH ×2 (08:45→20:48)
[2018-07-15] MEDS: Heparin 5000 units/ml inj SUBQ SCH ×2 (08:48→20:50)
--- NOTE | 2018-07-15 08:51 | Diagnostic Imaging Report ---
EXAM: XR Chest, 1 View CLINICAL HISTORY: INFECT TECHNIQUE: Frontal view of the chest. COMPARISON: Chest x-ray dated 07/14/18 FINDINGS: Lungs: Interval improved aeration in the left lung base. The lungs are otherwise clear without focal consolidation. Pleural space: Unremarkable. The costophrenic angles are sharp. No visible pneumothorax. Heart: Unremarkable. No cardiomegaly. Mediastinum: Unremarkable. Bones/joints: Unremarkable. Tubes, lines and devices: EKG leads overlie the thorax. IMPRESSION: Interval improved aeration in the left lung base. No new focal consolidation.
--- NOTE | 2018-07-15 09:11 | General Progress Note ---
Assessment/Plan Assessment/Plan Resp. Failure - improved Sepsis m/p Urinary - h/o Klebsiela ESBL - abx per ID. Decubs - Dr. Angel to follow. Resume all SNF meds Subjective Allergies: Coded Allergies: No Known Allergies (Unverified , 06/15/18) Subjective More alert. Less SOB! Objective Last 24 Hour Vital Signs Date Time Temp Pulse Resp B/P (MAP) Pulse Ox O2 Delivery O2 Flow Rate FiO2 07/15/18 04:00 91 07/15/18 04:00 98.0 91 19 150/68 (95) 96 98.0 07/15/18 00:08 94 Nasal Cannula 3.0 32 07/15/18 00:00 91 07/15/18 00:00 97.9 91 20 134/72 (92) 97 97.9 07/14/18 21:00 Nasal Cannula 3.0 07/14/18 20:00 98.1 92 18 142/71 (94) 99 98.1 07/14/18 20:00 92 07/14/18 19:05 Nasal Cannula 3.0 32 07/14/18 15:42 91 07/14/18 15:31 Nasal Cannula 3.0 Nasal Cannula 3.0 07/14/18 15:00 97.7 91 17 145/70 (95) 100 97.7 07/14/18 14:50 97.4 91 18 128/69 100 Nasal Cannula 3.0 32 97.4 07/14/18 13:05 97.4 91 18 128/69 100 Nasal Cannula 3.0 97.4 07/14/18 12:20 100 20 100 Nasal Cannula 3.0 32 07/14/18 11:15 100 07/14/18 11:15 78 18 100 Non-Rebreather 15.0 100 07/14/18 11:15 78 18 Non-Rebreather 15.0 100 07/14/18 11:05 100.3 80 15 127/65 100 Room Air 100.3 07/14/18 11:05 80 15 Room Air 07/14/18 10:57 73 15 127/65 100 Room Air Intake and Output 07/14/18 07/15/18 19:00 07:00 Intake Total 1770.000 ml Output Total 1100 ml 600 ml Balance -1100 ml 1170.000 ml Intake Free Water 30 ml IV Total 1300.000 ml Tube Feeding 380 ml Other 60 ml Output Urine Total 1100 ml 600 ml # Bowel Movements 1 Laboratory Tests 07/14/18 11:21: Urine Color Pale yellow, Urine Appearance Clear, Urine pH 6, Urine Specific [place] 1.015, Urine Protein Negative, Urine Glucose (UA) Negative, Urine Ketones Negative, Urine Blood Negative, Urine Nitrite Negative, Urine Bilirubin Negative, Urine Urobilinogen Normal, Urine Leukocyte Esterase Negative, Sodium Level 130L, Potassium Level 4.7, Chloride Level 99, Carbon Dioxide Level 26, Anion Gap 5, Blood Urea Nitrogen 29H, Creatinine 0.7, Estimat Glomerular Filtration Rate , Glucose Level 113H, Lactic Acid Level 1.30, Calcium Level 9.4 , Total Bilirubin 0.3, Aspartate Amino Transf (AST/SGOT) 22, Alanine Aminotransferase (ALT/SGPT) 24, Alkaline Phosphatase 75, Total Creatine Kinase 77, Creatine Kinase MB 2.2, Creatine Kinase MB Relative Index 2.8, Troponin I 0.000, Pro-B-Type Natriuretic Peptide 136H, Total Protein 7.2, Albumin 2.1L, Globulin 5.1, Albumin/Globulin Ratio 0.4L 07/14/18 11:22: Arterial Blood pH 7.507H, Arterial Blood Partial Pressure CO2 35.8, Arterial Blood Partial Pressure O2 277.9H, Arterial Blood HCO3 27.7H, Arterial Blood Oxygen Saturation 99.0, Arterial Blood Base Excess 4.6H, Raudel Test Positive 07/14/18 12:55: White Blood Count 12.9H, Red Blood Count 3.71L, Hemoglobin 10.9L, Hematocrit 33.5L, Mean Corpuscular Volume 90, Mean Corpuscular Hemoglobin 29.4, Mean Corpuscular Hemoglobin Concent 32.5, Red Cell Distribution Width 12.5, Platelet Count 327, Mean Platelet Volume 6.5, Neutrophils (%) (Auto) 72.6, Lymphocytes (% ) (Auto) 21.5, Monocytes (%) (Auto) 4.6, Eosinophils (%) (Auto) 0.9, Basophils ( %) (Auto) 0.4 07/15/18 06:15: Sodium Level 136, Potassium Level 4.4, Chloride Level 101, Carbon Dioxide Level 28, Anion Gap 7, Blood Urea Nitrogen 26H, Creatinine 0.8, Estimat Glomerular Filtration Rate , Glucose Level 169H, Calcium Level 9.0, Total Bilirubin 0.4, Aspartate Amino Transf (AST/SGOT) 17, Alanine Aminotransferase (ALT/SGPT) 29, Alkaline Phosphatase 70, Total Protein 6.8, Albumin 2.2L, Globulin 4.6, Albumin/ Globulin Ratio 0.5L, White Blood Count 12.2H, Red Blood Count 3.32L, Hemoglobin 10.0L, Hematocrit 29.7L, Mean Corpuscular Volume 89, Mean Corpuscular Hemoglobin 30.1, Mean Corpuscular Hemoglobin Concent 33.7, Red Cell Distribution Width 12.4, Platelet Count 272, Mean Platelet Volume 6.7, Neutrophils (%) (Auto) 80.4H, Lymphocytes (%) (Auto) 12.1L, Monocytes (%) (Auto ) 6.3, Eosinophils (%) (Auto) 0.7, Basophils (%) (Auto) 0.6 Height (Feet): 5 Height (Inches): 8.00 Weight (Pounds): 150 Objective CV RR Lungs CTA Abd SNT. BS + E No CCE Skin Stage 2-3 sacral decubs. Stage 2 B ankle decubs. Beltran Santos MD Jul 15, 2018 09:11
[2018-07-15] MEDS ORDERED: Norco 5mg/325mg tab ORAL PRN (10:00)
[2018-07-15] MEDS ORDERED: Albuterol/Ipratropium 3ml neb HHN PRN ×2 (10:00)
[2018-07-15] MEDS ORDERED: Tubing IV Secondary IV ONE (10:05)
[2018-07-15] MEDS ORDERED: Acetaminophen 650mg/20.3ml GT PRN (10:30)
[2018-07-15] MEDS ORDERED: NovoLOG Insulin Flexpen SUBQ SCH ×3 (11:30→12:00)
[2018-07-15 12:00] VITALS: BP 134/66
--- NOTE | 2018-07-15 13:32 | Consultation ---
History of Present Illness General Date patient seen: Jul 15, 2018 Chief Complaint: Dyspnea/Respdistress Reason for Consultation: full thickness sacral wound Present Illness HPI 78 year old male with multiple medical comorbidities who is a senior care resident presented with worsening respiratory status. Recent discharge from [facility] after similar episode. Hx chronic COPD. Upon admission noted to have full thickness wounds to sacral region. Surgery called to evaluate and assist with care / management. patient seen, chart reviewed, patient examined. Allergies: Coded Allergies: No Known Allergies (Unverified , 06/15/18) Medication History Scheduled Carbidopa/Levodopa 25-100 Mg* (Sinemet 25-100 Mg Tablet*), 1 TAB ORAL THREE TIMES A DAY, (Reported) Docusate Sodium (Docusate Sodium), 100 MG GT BID Docusate Sodium (Docusate Sodium), 50 MG GT DAILY, (Reported) Famotidine (Famotidine), 20 MG ORAL DAILY, (Reported) Folic Acid* (Folic Acid*), 1 MG ORAL DAILY, (Reported) Heparin Sod (Porcine) (Heparin Sodium*), 5,000 UNITS SUBQ EVERY 12 HOURS, ( Reported) Insulin Aspart (Novolog Flexpen), 0 UNITS SUBQ Q6HR Insulin Aspart (Novolog), 100 UNIT SQ Q6HR, (Reported) Meropenem (Meropenem), 1 GM IV Q8HR, (Reported) Sennosides (Senna-Gen), 2 TAB GT QHS [Levodopa/Carbidopa 25/100], 1 TAB GT THREE TIMES A DAY Scheduled PRN Acetaminophen* (Acetaminophen 325MG Tablet*), 650 MG ORAL Q6H PRN for Mild Pain/ Temp > 100.5, (Reported) Hydrocodone Bit/Acetaminophen 5-325* ([place] 5-325*), 1 TAB ORAL Q6H PRN Ipratropium/Albuterol Sulfate (DuoNeb 0.5-3(2.5)mg/3ml), 3 ML HHN Q6H PRN Ondansetron* (Zofran*), 4 MG IVP Q8H PRN Ondansetron* (Zofran*), 4 MG ORAL Q6H PRN for Nausea & Vomiting, (Reported) [Acetaminophen], 650 MG GT Q6H PRN Miscellaneous Medications Insulin Lispro (Humalog), 0 SUBQ, (Reported) Ipratropium/Albuterol Sulfate (DuoNeb 0.5-3(2.5)mg/3ml), 3 ML HHN, (Reported) Patient History Limited by: medical condition History Provided By: Medical Record, PMD Healthcare decision maker Resuscitation status Do Not Resuscitate Advanced Directive on File Past Medical/Surgical History Past Medical/Surgical History: (1) Decubitus ulcer of sacral region, stage 4 (2) Sepsis (3) Dyspnea (4) COPD exacerbation Review of Systems All Other Systems: negative except mentioned in HPI Physical Exam General Appearance: no apparent distress Lines, tubes and drains: peripheral HEENT: normocephalic, mucous membranes moist Neck: normal inspection Respiratory/Chest: no respiratory distress, no accessory muscle use, decreased breath sounds Cardiovascular/Chest: normal rate Abdomen: normal bowel sounds, soft, no organomegaly, no mass Extremities: other Skin Exam: other Neurologic: disoriented Last 24 Hour Vital Signs Date Time Temp Pulse Resp B/P (MAP) Pulse Ox O2 Delivery O2 Flow Rate FiO2 07/15/18 09:00 Nasal Cannula 3.0 07/15/18 08:00 98.8 98 20 144/73 (96) 98 98.8 07/15/18 07:54 96 07/15/18 04:00 91 07/15/18 04:00 98.0 91 19 150/68 (95) 96 98.0 07/15/18 00:08 94 Nasal Cannula 3.0 32 07/15/18 00:00 91 07/15/18 00:00 97.9 91 20 134/72 (92) 97 97.9 07/14/18 21:00 Nasal Cannula 3.0 07/14/18 20:00 98.1 92 18 142/71 (94) 99 98.1 07/14/18 20:00 92 07/14/18 19:05 Nasal Cannula 3.0 32 07/14/18 15:42 91 07/14/18 15:31 Nasal Cannula 3.0 Nasal Cannula 3.0 07/14/18 15:00 97.7 91 17 145/70 (95) 100 97.7 07/14/18 14:50 97.4 91 18 128/69 100 Nasal Cannula 3.0 32 97.4 Intake and Output 07/14/18 07/15/18 19:00 07:00 Intake Total 1770.000 ml Output Total 1100 ml 600 ml Balance -1100 ml 1170.000 ml Intake Free Water 30 ml IV Total 1300.000 ml Tube Feeding 380 ml Other 60 ml Output Urine Total 1100 ml 600 ml # Bowel Movements 1 Laboratory Tests Test 07/15/18 06:15 White Blood Count 12.2 K/UL (4.8-10.8) H Red Blood Count 3.32 M/UL (4.70-6.10) L Hemoglobin 10.0 G/DL (14.2-18.0) L Hematocrit 29.7 % (42.0-52.0) L Mean Corpuscular Volume 89 FL (80-99) Mean Corpuscular Hemoglobin 30.1 PG (27.0-31.0) Mean Corpuscular Hemoglobin Concent 33.7 G/DL (32.0-36.0) Red Cell Distribution Width 12.4 % (11.6-14.8) Platelet Count 272 K/UL (150-450) Mean Platelet Volume 6.7 FL (6.5-10.1) Neutrophils (%) (Auto) 80.4 % (45.0-75.0) H Lymphocytes (%) (Auto) 12.1 % (20.0-45.0) L Monocytes (%) (Auto) 6.3 % (1.0-10.0) Eosinophils (%) (Auto) 0.7 % (0.0-3.0) Basophils (%) (Auto) 0.6 % (0.0-2.0) Sodium Level 136 MMOL/L (136-145) Potassium Level 4.4 MMOL/L (3.5-5.1) Chloride Level 101 MMOL/L (98-107) Carbon Dioxide Level 28 MMOL/L (21-32) Anion Gap 7 mmol/L (5-15) Blood Urea Nitrogen 26 mg/dL (7-18) H Creatinine 0.8 MG/DL (0.55-1.30) Estimat Glomerular Filtration Rate mL/min (>60) Glucose Level 169 MG/DL (74-106) H Calcium Level 9.0 MG/DL (8.5-10.1) Total Bilirubin 0.4 MG/DL (0.2-1.0) Aspartate Amino Transf (AST/SGOT) 17 U/L (15-37) Alanine Aminotransferase (ALT/SGPT) 29 U/L (12-78) Alkaline Phosphatase 70 U/L (46-116) Total Protein 6.8 G/DL (6.4-8.2) Albumin 2.2 G/DL (3.4-5.0) L Globulin 4.6 g/dL Albumin/Globulin Ratio 0.5 (1.0-2.7) L Height (Feet): 5 Height (Inches): 8.00 Weight (Pounds): 150 Medications Current Medications Medications (Trade) Dose Ordered Sig/Kashif Route PRN Reason Start Time Stop Time Status Last Admin Dose Admin Acetaminophen (Tylenol) 650 mg Q4H PRN GT Mild Pain / T>100.5 07/15/18 10:30 08/13/18 19:44 Acetaminophen/ Hydrocodone Bitart ([place] 5/325) 1 tab Q6H PRN ORAL pain 4-10 07/15/18 10:00 07/22/18 09:59 Albuterol/ Ipratropium (Albuterol/ Ipratropium) 3 ml Q6H PRN HHN Shortness of Breath 07/15/18 10:00 07/20/18 09:59 Carbidopa/Levodopa (Sinemet 25/100) 1 tab THREE TIMES A DAY ORAL 07/15/18 13:00 08/14/18 12:59 Dextrose (Dextrose 50%) 25 ml Q30M PRN IV Hypoglycemia 07/14/18 12:52 08/13/18 12:51 Dextrose (Dextrose 50%) 50 ml Q30M PRN IV Hypoglycemia 07/14/18 12:52 08/13/18 12:51 Docusate Sodium (Colace) 100 mg EVERY 12 HOURS GT 07/14/18 21:00 08/13/18 20:59 07/15/18 08:45 Folic Acid (Folate) 1 mg DAILY ORAL 07/16/18 09:00 08/15/18 08:59 Heparin Sodium (Porcine) (Heparin 5000 units/ml) 5,000 units EVERY 12 HOURS SUBQ 07/14/18 21:00 08/13/18 20:59 07/15/18 08:48 Insulin Aspart (NovoLOG) BEFORE MEALS AND HS SUBQ 07/15/18 12:30 08/14/18 12:29 Lansoprazole (Prevacid) 30 mg DAILY GT 07/15/18 09:00 08/14/18 08:59 07/15/18 08:45 Meropenem 1 gm/ Sodium Chloride 100 ml @ 200 mls/hr Q8H IVPB 07/14/18 20:30 07/19/18 20:29 07/15/18 12:31 Ondansetron HCl (Zofran) 4 mg Q8H PRN IVP Nausea & Vomiting 07/15/18 10:00 08/14/18 09:59 Sennosides (Senokot) 2 tab QHS GT 07/15/18 21:00 08/14/18 20:59 Sodium Chloride 1,000 ml @ 50 mls/hr Q20H IV 07/14/18 17:00 08/13/18 16:59 07/14/18 18:29 Vancomycin HCl (Vanco rx to dose) 1 ea DAILY PRN MISC Per rx protocol 07/14/18 12:00 08/13/18 11:59 Vancomycin/Sodium Chloride 250 ml @ 166.667 mls/hr Q12H IVPB 07/14/18 17:30 07/19/18 17:29 07/15/18 05:26 Assessment/Plan Problem List: (1) Decubitus ulcer of sacral region, stage 4 Assessment & Plan: Stage IV full thickness pressure injury sacral / buttock area with dry skin and slough. No odor or exudate noted. Periwound without induration. DTPI noted to R buttocks 3cm x 1cm with maroon indurated area with dark red borders and periwound Non blanching erythema multiple areas of Left foot with Periwound dry and pink. L Heel boggy red but easily blanches. R heel Boggy with non-blanching erythema. All wounds present upon admission and will be cared for while in hospital Plan: Pressure release mattress turn q2h as per protocol Apply Triad to sacral / buttock wounds. Apply Cavilon to Non-blanchable red areas and cover with Foam drsg .Change daily and prn. Off-load heels with pillow and heel protectors Cavilon Wipe to Non-Blanchable red area Lateral /medial L foot daily. ICD Codes: L89.154 - Pressure ulcer of sacral region, stage 4 SNOMED: [id number], [id number] Tray Burk Jul 15, 2018 13:32
[2018-07-15] MEDS: NovoLOG Insulin Flexpen SUBQ SCH ×3 (14:10→20:51)
[2018-07-15] MEDS: Levodopa/Carbidopa 25/100 tab ORAL SCH ×2 (14:11→17:41)
[2018-07-15 16:00] VITALS: BP 128/62
[2018-07-15 20:00] VITALS: BP 105/58
--- NOTE | 2018-07-15 20:17 | Infectious Diseases Prog Note ---
Assessment/Plan Assessment/Plan Full consult to follow: gram + bacteremia with sepsis, ? endocarditis check echo asp pna/hcap pna allergies -negative hx esbl vancomycin and meropenem check cultures, labs and chest x-ray check surveillance blood cultures wound care per protocol - doubt sepsis source Subjective Allergies: Coded Allergies: No Known Allergies (Unverified , 06/15/18) Objective Vital Signs Last 24 Hour Vital Signs Date Time Temp Pulse Resp B/P (MAP) Pulse Ox O2 Delivery O2 Flow Rate FiO2 07/15/18 20:00 99.0 94 17 105/58 (74) 97 99.0 07/15/18 19:35 Room Air 21 07/15/18 19:33 97 Room Air 21 07/15/18 16:00 98.1 91 18 128/62 (84) 96 98.1 07/15/18 15:35 82 07/15/18 12:00 98.0 96 20 134/66 (88) 98 98.0 07/15/18 11:50 95 07/15/18 09:00 Nasal Cannula 3.0 07/15/18 08:00 98.8 98 20 144/73 (96) 98 98.8 07/15/18 07:54 96 07/15/18 04:00 91 07/15/18 04:00 98.0 91 19 150/68 (95) 96 98.0 07/15/18 00:08 94 Nasal Cannula 3.0 32 07/15/18 00:00 91 07/15/18 00:00 97.9 91 20 134/72 (92) 97 97.9 07/14/18 21:00 Nasal Cannula 3.0 Height (Feet): 5 Height (Inches): 8.00 Weight (Pounds): 150 Microbiology Date/Time Source Procedure Growth Status 07/14/18 11:31 Blood Blood Culture - Preliminary Resulted 07/14/18 11:21 Blood Blood Culture - Preliminary Resulted Laboratory Tests Test 07/15/18 06:15 White Blood Count 12.2 K/UL (4.8-10.8) H Red Blood Count 3.32 M/UL (4.70-6.10) L Hemoglobin 10.0 G/DL (14.2-18.0) L Hematocrit 29.7 % (42.0-52.0) L Mean Corpuscular Volume 89 FL (80-99) Mean Corpuscular Hemoglobin 30.1 PG (27.0-31.0) Mean Corpuscular Hemoglobin Concent 33.7 G/DL (32.0-36.0) Red Cell Distribution Width 12.4 % (11.6-14.8) Platelet Count 272 K/UL (150-450) Mean Platelet Volume 6.7 FL (6.5-10.1) Neutrophils (%) (Auto) 80.4 % (45.0-75.0) H Lymphocytes (%) (Auto) 12.1 % (20.0-45.0) L Monocytes (%) (Auto) 6.3 % (1.0-10.0) Eosinophils (%) (Auto) 0.7 % (0.0-3.0) Basophils (%) (Auto) 0.6 % (0.0-2.0) Sodium Level 136 MMOL/L (136-145) Potassium Level 4.4 MMOL/L (3.5-5.1) Chloride Level 101 MMOL/L (98-107) Carbon Dioxide Level 28 MMOL/L (21-32) Anion Gap 7 mmol/L (5-15) Blood Urea Nitrogen 26 mg/dL (7-18) H Creatinine 0.8 MG/DL (0.55-1.30) Estimat Glomerular Filtration Rate mL/min (>60) Glucose Level 169 MG/DL (74-106) H Calcium Level 9.0 MG/DL (8.5-10.1) Total Bilirubin 0.4 MG/DL (0.2-1.0) Aspartate Amino Transf (AST/SGOT) 17 U/L (15-37) Alanine Aminotransferase (ALT/SGPT) 29 U/L (12-78) Alkaline Phosphatase 70 U/L (46-116) Total Protein 6.8 G/DL (6.4-8.2) Albumin 2.2 G/DL (3.4-5.0) L Globulin 4.6 g/dL Albumin/Globulin Ratio 0.5 (1.0-2.7) L Current Medications Medications (Trade) Dose Ordered Sig/Kashif Route PRN Reason Start Time Stop Time Status Last Admin Dose Admin Acetaminophen (Tylenol) 650 mg Q4H PRN GT Mild Pain / T>100.5 07/15/18 10:30 08/13/18 19:44 Acetaminophen/ Hydrocodone Bitart ([place] 5/325) 1 tab Q6H PRN ORAL pain 4-10 07/15/18 10:00 07/22/18 09:59 Albuterol/ Ipratropium (Albuterol/ Ipratropium) 3 ml Q6H PRN HHN Shortness of Breath 07/15/18 10:00 07/20/18 09:59 Carbidopa/Levodopa (Sinemet 25/100) 1 tab THREE TIMES A DAY ORAL 07/15/18 13:00 08/14/18 12:59 07/15/18 17:41 Dextrose (Dextrose 50%) 25 ml Q30M PRN IV Hypoglycemia 07/14/18 12:52 08/13/18 12:51 Dextrose (Dextrose 50%) 50 ml Q30M PRN IV Hypoglycemia 07/14/18 12:52 08/13/18 12:51 Docusate Sodium (Colace) 100 mg EVERY 12 HOURS GT 07/14/18 21:00 08/13/18 20:59 07/15/18 08:45 Folic Acid (Folate) 1 mg DAILY ORAL 07/16/18 09:00 08/15/18 08:59 Heparin Sodium (Porcine) (Heparin 5000 units/ml) 5,000 units EVERY 12 HOURS SUBQ 07/14/18 21:00 08/13/18 20:59 07/15/18 08:48 Insulin Aspart (NovoLOG) BEFORE MEALS AND HS SUBQ 07/15/18 12:30 08/14/18 12:29 07/15/18 16:43 Lansoprazole (Prevacid) 30 mg DAILY GT 07/15/18 09:00 08/14/18 08:59 07/15/18 08:45 Meropenem 1 gm/ Sodium Chloride 100 ml @ 200 mls/hr Q8H IVPB 07/14/18 20:30 07/19/18 20:29 07/15/18 12:31 Ondansetron HCl (Zofran) 4 mg Q8H PRN IVP Nausea & Vomiting 07/15/18 10:00 08/14/18 09:59 Sennosides (Senokot) 2 tab QHS GT 07/15/18 21:00 08/14/18 20:59 Sodium Chloride 1,000 ml @ 50 mls/hr Q20H IV 9/29/18 17:00 08/13/18 16:59 07/14/18 18:29 Vancomycin HCl (Vanco rx to dose) 1 ea DAILY PRN MISC Per rx protocol 07/14/18 12:00 08/13/18 11:59 Vancomycin/Sodium Chloride 250 ml @ 166.667 mls/hr Q12H IVPB 07/14/18 17:30 07/19/18 17:29 07/15/18 16:42 Meche Nascimento MD Jul 15, 2018 20:17
[2018-07-15] MEDS: Sennosides 8.6mg GT SCH (20:48)
[2018-07-16] VITALS: BP 102/55
[2018-07-16 04:00] VITALS: BP 128/68
[2018-07-16] MEDS: Vancomycin 750mg/NS 250ml IVPB SCH (04:37)
[2018-07-16] MEDS: NovoLOG Insulin Flexpen SUBQ SCH ×4 (05:30→20:40)
[2018-07-16 05:59] LABS: BASOPHILS % (AUTO) 0.8 % (0.0-2.0); EOSINOPHILS % (AUTO) 1.3 % (0.0-3.0); HEMATOCRIT 26.8 % (42.0-52.0); HEMOGLOBIN 9.4 G/DL (14.2-18.0); LYMPHOCYTES % (AUTO) 17.6 % (20.0-45.0); MEAN CORPUSCULAR VOLUME 90 FL (80-99); MONOCYTES % (AUTO) 7.6 % (1.0-10.0); NEUTROPHILS % (AUTO) 72.7 % (45.0-75.0); PLATELET COUNT 261 K/UL (150-450); RED BLOOD COUNT 2.99 M/UL (4.70-6.10); RED CELL DISTRIBUTION WIDTH 11.9 % (11.6-14.8)
[2018-07-16 06:12] LABS: ALANINE AMINOTRANSFERASE 19 U/L (12-78); ALBUMIN 1.9 G/DL (3.4-5.0); ALBUMIN/GLOBULIN RATIO 0.4 (1.0-2.7); ALKALINE PHOSPHATASE 67 U/L (46-116); ANION GAP 3 mmol/L (5-15); ASPARTATE AMINO TRANSFERASE 16 U/L (15-37); BILIRUBIN,TOTAL 0.3 MG/DL (0.2-1.0); BLOOD UREA NITROGEN 32 mg/dL (7-18); CALCIUM 8.6 MG/DL (8.5-10.1); CARBON DIOXIDE 31 MMOL/L (21-32); CHLORIDE 104 MMOL/L (98-107); CREATININE 0.9 MG/DL (0.55-1.30); POTASSIUM 4.1 MMOL/L (3.5-5.1); SODIUM 138 MMOL/L (136-145)
[2018-07-16 08:00] VITALS: BP 104/51
[2018-07-16] MEDS: Levodopa/Carbidopa 25/100 tab ORAL SCH ×3 (08:34→18:00)
[2018-07-16] MEDS: Docusate 100mg/10ml Liq GT SCH ×2 (08:34→20:38)
[2018-07-16] MEDS: Heparin 5000 units/ml inj SUBQ SCH ×2 (08:36→20:39)
--- NOTE | 2018-07-16 09:14 | General Progress Note ---
Assessment/Plan Assessment/Plan Resp. Failure - improved Sepsis m/p Urinary - h/o Klebsiela ESBL - abx per ID. BC Staph epi! On Vanco. Source uknknown?? Decubs - Dr. Angel to follow. Resume all SNF meds Subjective Allergies: Coded Allergies: No Known Allergies (Unverified , 06/15/18) Subjective More alert. Less SOB! Objective Last 24 Hour Vital Signs Date Time Temp Pulse Resp B/P (MAP) Pulse Ox O2 Delivery O2 Flow Rate FiO2 07/16/18 04:00 98.5 88 18 128/68 (88) 99 98.5 07/16/18 04:00 79 07/16/18 00:00 98.8 97 18 102/55 (71) 97 98.8 07/16/18 00:00 86 07/15/18 21:00 Nasal Cannula 3.0 07/15/18 20:00 99.0 94 17 105/58 (74) 97 99.0 07/15/18 20:00 94 07/15/18 19:35 Room Air 21 07/15/18 19:33 97 Room Air 21 07/15/18 16:00 98.1 91 18 128/62 (84) 96 98.1 07/15/18 15:35 82 07/15/18 12:00 98.0 96 20 134/66 (88) 98 98.0 07/15/18 11:50 95 Intake and Output 07/15/18 07/16/18 19:00 07:00 Intake Total 350 ml Output Total 700 ml 650 ml Balance -350 ml -650 ml IV Total 350 ml Output Urine Total 700 ml 650 ml # Voids 1 # Bowel Movements 1 3 Laboratory Tests 07/16/18 05:19: White Blood Count 11.0H, Red Blood Count 2.99L, Hemoglobin 9.4L, Hematocrit 26.8L, Mean Corpuscular Volume 90, Mean Corpuscular Hemoglobin 31.4H, Mean Corpuscular Hemoglobin Concent 35.0, Red Cell Distribution Width 11.9, Platelet Count 261, Mean Platelet Volume 6.4L, Neutrophils (%) (Auto) 72.7, Lymphocytes ( %) (Auto) 17.6L, Monocytes (%) (Auto) 7.6, Eosinophils (%) (Auto) 1.3, Basophils (%) (Auto) 0.8, Sodium Level 138, Potassium Level 4.1, Chloride Level 104, Carbon Dioxide Level 31, Anion Gap 3L, Blood Urea Nitrogen 32H, Creatinine 0.9, Estimat Glomerular Filtration Rate , Glucose Level 155H, Calcium Level 8.6 , Total Bilirubin 0.3, Aspartate Amino Transf (AST/SGOT) 16, Alanine Aminotransferase (ALT/SGPT) 19, Alkaline Phosphatase 67, Total Protein 6.2L, Albumin 1.9L, Globulin 4.3, Albumin/Globulin Ratio 0.4L, Vancomycin Level Trough 28.0H Height (Feet): 5 Height (Inches): 8.00 Weight (Pounds): 150 Objective CV RR Lungs CTA Abd SNT. BS + E No CCE Skin Stage 2-3 sacral decubs. Stage 2 B ankle decubs. Beltran Santos MD Jul 16, 2018 09:14
[2018-07-16 12:00] VITALS: BP 124/61
[2018-07-16 16:00] VITALS: BP 118/60
[2018-07-16 20:00] VITALS: BP 122/57
[2018-07-16] MEDS: Sennosides 8.6mg GT SCH (20:39)
[2018-07-17] VITALS: BP 126/57
--- NOTE | 2018-07-17 01:45 | Consultation ---
DATE OF CONSULTATION: 07/15/2018 INFECTIOUS DISEASE CONSULTATION CONSULTING PHYSICIAN: Meche Nascimento M.D. ATTENDING PHYSICIAN: Beltran Santos M.D. REFERRING PHYSICIAN: Beltran Santos M.D. REASON FOR CONSULTATION: Gram-positive bacteremia, sepsis, leukocytosis, and fevers. CHIEF COMPLAINT: The patient's chief complaint coming in to the hospital was shortness of breath, hypoxia, and COPD. HISTORY OF PRESENT ILLNESS: This is a 78-year-old male, who comes in to [facility] with shortness of breath and respiratory insufficiency. Chest x-ray showed the patient to have a patchy infiltrate in the left lower lobe lung. Workup shows that he has gram-positives in the blood. Infectious Disease consultation was requested. The patient also was septic with elevated white count and fevers. Temperature was as high as 100.3 and the patient had a white count as high as 12.9. The patient was started on antibiotics including meropenem and vancomycin. The patient, I believe, has history of ESBL organisms. The patient also has wounds including a sacral wound. Again, workup showed gram-positive organisms. Chest x-ray showed infiltrate. The patient also had a urinalysis that was unremarkable. Infectious Disease consultation was requested for antibiotic management. The patient will be continued on vancomycin and meropenem pending workup. MAR was noted. Orders were noted. Notes and records were reviewed. Case was discussed with Dr. Santos. Currently, the patient has no central line. PAST MEDICAL HISTORY: The patient's past medical history includes the history of the following. The patient has a past medical history of severe organic brain syndrome, history of Parkinson's with dementia and Parkinson's disease, history of DNR, history of ESBL, history of aspiration pneumonia, history of gastrostomy tube, history of hypertension, hypertensive cardiovascular disease, history of diabetes, history of malnutrition, history of volume repletion, and history of encephalopathy. MEDICATIONS: Outside medications included Tylenol, vitamin C, carbidopa, famotidine, Lantus insulin, DuoNeb, multivitamin, abx, and zinc sulfate. Medications here at [place], upon reviewing the MAR, he is on following medications: He is on folic acid. He is on Senokot, carbidopa, insulin, acetaminophen, hydrocodone, albuterol, Zofran, lisinopril, heparin, docusate, meropenem, and vancomycin. He is getting IV fluids. ALLERGIES: No known drug allergies. SOCIAL HISTORY: Negative for smoking, alcohol, and drug abuse. FAMILY HISTORY: Noncontributory. Negative for exposure to tuberculosis or cancer. REVIEW OF SYSTEMS: GENERAL: The patient has generalized fatigue and weakness. He is more alert today when I first saw him and less short of breath. He does have a Tiwari. He is not on a vent. He is lethargic. No pressors. Lethargic, weak, but more responsive today. He is still lethargic. He did come in with fevers. HEAD AND NECK: No obvious head pain or neck pain. CARDIAC: No obvious chest pain. No pressors. GASTROINTESTINAL: No nausea, vomiting, or diarrhea. Rectal tube. GENITOURINARY: He has a Tiwari. PULMONARY: Congestion and shortness of breath are less so than yesterday. SKIN: No new rash. NEUROLOGIC: No seizures. Wounds were noted. He has multiple wounds. He has generalized fatigue and weakness. No seizure activity. GENITOURINARY: He has a Tiwari. PHYSICAL EXAMINATION: VITAL SIGNS: I saw the patient. His temperature was 98, pulse rate 96, respiratory rate 20, blood pressure 134/66, and saturation 98%. T-max 100.3. Pulse rate has been over 90. He is currently not on pressors. GENERAL: Lethargic and weak. Less short of breath today. HEAD AND NECK: Oral exam, no thrush. Eye exam, no icterus. Neck is supple. No JVD. Normocephalic. LUNGS: Bilateral rhonchi and rales. HEART: Regular. No gallop or murmur. ABDOMEN: Soft. Positive bowel sounds. Cannot assess tenderness. SKIN: No rash. Wounds were noted. MUSCULOSKELETAL: No effusion. Legs as without cellulitis. PERIPHERAL VASCULAR: No cyanosis or gangrene. GENITOURINARY: He has a Tiwari. Urine is cloudy. LINE SITES: Without phlebitis. NEUROLOGIC: Generalized weakness and poorly responsive. LABORATORY DATA: Laboratory data is as follows, UA with leukocyte esterase negative. White count on admission 12.9 and hemoglobin 10.9. White count when I saw him was 12.2. Creatinine 0.8. LFTs noted. UA was negative. Cultures are pending. Chest x-ray was reviewed and noted and showed improved aeration at the left lung base. Initial chest x-ray showed patchy infiltrate in the left lower lung and diffuse interstitial markings. CULTURES: Blood cultures grew out gram-positive organisms. Identification pending. UA negative. ASSESSMENT AND PLAN: 1. The patient has gram-positive bacteremia, sepsis, elevated white count, fevers, and SIRS criteria. The patient also looks like he has an aspiration and healthcare-acquired pneumonia. Rule out community-acquired pneumonia. Most likely, aspiration and healthcare-acquired pneumonia. UA was negative. The patient has a history of ESBL organisms. At this time, we will continue with vancomycin and meropenem for MRSA and gram-negative coverage. Continue vancomycin and meropenem. Check cultures, laboratories, and chest x-ray. The patient has wounds and is being followed by surgery. Debridement as needed per surgery recommendations. Continue vancomycin and meropenem to cover sepsis, pneumonia, and gram-positive bacteremia. Check identification of blood cultures. Consider echocardiogram if not done especially if the blood cultures are Staph aureus. Await final workup. Check followup labs and chest x-ray. Continue antibiotics, vancomycin and meropenem. 2. Organic brain syndrome. 3. Parkinson's. 4. Parkinson dementia. 5. History of ESBL organisms. 6. Aspiration pneumonia. 7. Gastrostomy tube and dysphagia. 8. Hypertension. 9. Hypertensive cardiovascular disease. 10. Diabetes. 11. Malnutrition. 12. Volume repletion. 13. Encephalopathy. 14. Anemia. 15. Past medical history is noted. 16. No known allergies. 17. Social history is negative. 18. Family history is noncontributory. 19. MAR was noted. 20. Case was discussed with RN. 21. Case was discussed with Dr. Santos. 22. Continue treatment per primary consultants. 23. Skin care and wound care per surgery. 24. Orders were noted and entered. 25. Notes and records were reviewed. Meche Nascimento M.D. DR: NIGEL JOB#: [id number] CC: JOSE MANUEL
[2018-07-17 04:00] VITALS: BP 126/62
[2018-07-17] MEDS: NovoLOG Insulin Flexpen SUBQ SCH ×4 (05:38→21:27)
[2018-07-17 08:00] VITALS: BP 118/59
[2018-07-17 08:07] LABS: BASOPHILS % (AUTO) 0.9 % (0.0-2.0); EOSINOPHILS % (AUTO) 3.6 % (0.0-3.0); HEMATOCRIT 26.3 % (42.0-52.0); HEMOGLOBIN 8.9 G/DL (14.2-18.0); MEAN CORPUSCULAR VOLUME 89 FL (80-99); MONOCYTES % (AUTO) 7.1 % (1.0-10.0); NEUTROPHILS % (AUTO) 71.5 % (45.0-75.0); PLATELET COUNT 237 K/UL (150-450); RED BLOOD COUNT 2.94 M/UL (4.70-6.10); RED CELL DISTRIBUTION WIDTH 12.3 % (11.6-14.8); WHITE BLOOD COUNT 9.6 K/UL (4.8-10.8)
[2018-07-17 08:30] LABS: % IRON SATURATION 31 % (15-50); IRON 35 ug/dL (50-175); TOTAL IRON BINDING CAPACITY 113 ug/dL (250-450)
[2018-07-17] MEDS: Docusate 100mg/10ml Liq GT SCH ×2 (08:33→21:18)
[2018-07-17] MEDS: Levodopa/Carbidopa 25/100 tab ORAL SCH ×3 (08:33→17:07)
[2018-07-17] MEDS: Heparin 5000 units/ml inj SUBQ SCH ×2 (08:38→21:19)
[2018-07-17 08:44] LABS: ANION GAP 6 mmol/L (5-15); BLOOD UREA NITROGEN 34 mg/dL (7-18); CALCIUM 8.7 MG/DL (8.5-10.1); CARBON DIOXIDE 30 MMOL/L (21-32); CHLORIDE 102 MMOL/L (98-107); CREATININE 0.8 MG/DL (0.55-1.30); FERRITIN 527 NG/ML (8-388); POTASSIUM 3.9 MMOL/L (3.5-5.1); SODIUM 138 MMOL/L (136-145)
--- NOTE | 2018-07-17 09:40 | General Progress Note ---
Assessment/Plan Assessment/Plan Resp. Failure - improved Sepsis m/p Urinary - h/o Klebsiela ESBL - abx per ID. BC Staph epi! On Vanco. Source uknknown?? Decubs - Dr. Angel to follow. Awaiting 2 D Echo results! Subjective Allergies: Coded Allergies: No Known Allergies (Unverified , 06/15/18) Subjective More alert. Less SOB! Objective Last 24 Hour Vital Signs Date Time Temp Pulse Resp B/P (MAP) Pulse Ox O2 Delivery O2 Flow Rate FiO2 07/17/18 08:00 97.9 73 20 118/59 (78) 100 97.9 07/17/18 04:00 98.4 73 16 126/62 (83) 97 98.4 07/17/18 04:00 80 07/17/18 00:00 98.1 76 16 126/57 (80) 96 98.1 07/17/18 00:00 81 07/16/18 21:36 Room Air 21 07/16/18 21:36 98 Room Air 21 07/16/18 21:00 Nasal Cannula 3.0 07/16/18 20:00 82 07/16/18 20:00 98.2 86 17 122/57 (78) 98 98.2 07/16/18 16:03 79 07/16/18 16:00 98.1 86 20 118/60 (79) 98 98.1 07/16/18 12:01 77 07/16/18 12:00 98.4 81 20 124/61 (82) 96 98.4 Intake and Output 07/16/18 07/17/18 19:00 07:00 Intake Total 460 ml 1340 ml Output Total 500 ml Balance -40 ml 1340 ml Intake Free Water 50 ml 200 ml IV Total 50 ml 700 ml Tube Feeding 360 ml 440 ml Output Urine Total 500 ml # Bowel Movements 1 Laboratory Tests 07/17/18 07:10: White Blood Count 9.6, Red Blood Count 2.94L, Hemoglobin 8.9L, Hematocrit 26.3L , Mean Corpuscular Volume 89, Mean Corpuscular Hemoglobin 30.2, Mean Corpuscular Hemoglobin Concent 33.8, Red Cell Distribution Width 12.3, Platelet Count 237, Mean Platelet Volume 6.8, Neutrophils (%) (Auto) 71.5, Lymphocytes (% ) (Auto) 17.0L, Monocytes (%) (Auto) 7.1, Eosinophils (%) (Auto) 3.6H, Basophils (%) (Auto) 0.9, Sodium Level 138, Potassium Level 3.9, Chloride Level 102, Carbon Dioxide Level 30, Anion Gap 6, Blood Urea Nitrogen 34H, Creatinine 0.8, Estimat Glomerular Filtration Rate , Glucose Level 127H, Calcium Level 8.7 , Magnesium Level 2.0, Iron Level 35L, Total Iron Binding Capacity 113L, Percent Iron Saturation 31, Unsaturated Iron Binding 78L, Ferritin 527H, Random Vancomycin Level 13.5 Height (Feet): 5 Height (Inches): 8.00 Weight (Pounds): 150 Objective CV RR Lungs CTA Abd SNT. BS + E No CCE Skin Stage 2-3 sacral decubs. Stage 2 B ankle decubs. Beltran Santos MD Jul 17, 2018 09:40
--- NOTE | 2018-07-17 10:21 | Diagnostic Imaging Report ---
Indication: Shortness of breath Technique: One view of the chest Comparison: 07/15/2018 Findings: Lungs and pleural spaces are clear. Heart size is normal. No significant interim change Impression: No acute process. No significant interim gear changer 2 days
[2018-07-17] MEDS: Vancomycin 750mg/NS 250ml IVPB SCH (10:44)
[2018-07-17 12:00] VITALS: BP 127/59
[2018-07-17 16:00] VITALS: BP 108/59
--- NOTE | 2018-07-17 16:01 | Infectious Diseases Prog Note ---
Assessment/Plan Assessment/Plan ASSESSMENT AND PLAN: 1. coag neg staph bacteremia, aspiration pna/hcap, sepsis, leukocytosis, fevers , ua negative - clinically better, chest x-ray improved, sepsis better - vancomycin and meropenem x 7 days - communicated with Dr. Santos about antibiotics and clinical management - surveillance blood cultures negative 2. Organic brain syndrome. 3. Parkinson's. 4. Parkinson dementia. 5. History of ESBL organisms. 6. Aspiration pneumonia. 7. Gastrostomy tube and dysphagia. 8. Hypertension. 9. Hypertensive cardiovascular disease. 10. Diabetes. 11. Malnutrition. 12. Volume repletion. 13. Encephalopathy. 14. Anemia. 15. Past medical history is noted. 16. No known allergies. 17. Social history is negative. 18. Family history is noncontributory. 19. MAR was noted. 20. Case was discussed with RN. 21. Case was discussed with Dr. Santos. 22. Continue treatment per primary consultants. 23. Skin care and wound care per surgery. 24. Orders were noted and entered. 25. Notes and records were reviewed. 26. vre colonization and isolation Subjective Constitutional: Reports: other - less sob, no change in mental status; Denies: fever HEENT: Denies: congestion Respiratory: Denies: shortness of breath Cardiovascular: Denies: chest pain Gastrointestinal/Abdominal: Denies: nausea, vomiting, diarrhea Genitourinary: Reports: other - + kearney Neurologic: Denies: headache Psychiatric: Denies: depression Skin: Denies: rash Hematologic: Denies: bleeding Musculoskeletal: Denies: pain Allergies: Coded Allergies: No Known Allergies (Unverified , 06/15/18) Objective Vital Signs Last 24 Hour Vital Signs Date Time Temp Pulse Resp B/P (MAP) Pulse Ox O2 Delivery O2 Flow Rate FiO2 07/17/18 12:00 97.9 78 20 127/59 (81) 97 97.9 07/17/18 11:26 73 07/17/18 09:00 Nasal Cannula 3.0 07/17/18 08:00 97.9 73 20 118/59 (78) 100 97.9 07/17/18 07:36 72 07/17/18 04:00 98.4 73 16 126/62 (83) 97 98.4 07/17/18 04:00 80 07/17/18 00:00 98.1 76 16 126/57 (80) 96 98.1 07/17/18 00:00 81 07/16/18 21:36 Room Air 21 07/16/18 21:36 98 Room Air 21 07/16/18 21:00 Nasal Cannula 3.0 07/16/18 20:00 82 07/16/18 20:00 98.2 86 17 122/57 (78) 98 98.2 07/16/18 16:03 79 07/16/18 16:00 98.1 86 20 118/60 (79) 98 98.1 Height (Feet): 5 Height (Inches): 8.00 Weight (Pounds): 150 General Appearance: no acute distress HEENT: normocephalic, atraumatic, anicteric, EOMI, no JVD, other - n Respiratory/Chest: no accessory muscle use, crackles/rales, rhonchi - bilaterally Cardiovascular: normal rate, regular rhythm, no gallop/murmur, no JVD Abdomen: normal bowel sounds, soft, non tender, no organomegaly, non distended Genitourinary: other - + kearney - urine is clear Extremities: no cyanosis Skin: no rash, other - wounds covered Neurologic/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 Patchy opacity in the medial left lower lung. This may represent atelectasis versus pneumonia. 2. Mild diffusely increased interstitial markings. This is not cynically changed compared to the prior exam and likely related to chronic senescent changes although differential diagnosis may also include an underlying interstitial pneumonitis. 07/17 -chest x-ray - nad, report noted Microbiology Date/Time Source Procedure Growth Status 07/15/18 20:55 Blood Blood Culture - Preliminary NO GROWTH AFTER 24 HOURS Resulted 07/14/18 11:21 Nasal Nares MRSA Culture - Final NO METHICILLIN RESISTANT STAPH AUREUS... Complete 07/14/18 11:21 Rectum VRE Culture - Final Enterococcus Faecalis - Vre Complete Microbiology Date/Time Source Procedure Growth Status 07/15/18 20:55 Blood Blood Culture - Preliminary NO GROWTH AFTER 24 HOURS Resulted 07/15/18 20:55 Blood Blood Culture - Preliminary NO GROWTH AFTER 24 HOURS Resulted Laboratory Tests Test 07/17/18 07:10 White Blood Count 9.6 K/UL (4.8-10.8) Red Blood Count 2.94 M/UL (4.70-6.10) L Hemoglobin 8.9 G/DL (14.2-18.0) L Hematocrit 26.3 % (42.0-52.0) L Mean Corpuscular Volume 89 FL (80-99) Mean Corpuscular Hemoglobin 30.2 PG (27.0-31.0) Mean Corpuscular Hemoglobin Concent 33.8 G/DL (32.0-36.0) Red Cell Distribution Width 12.3 % (11.6-14.8) Platelet Count 237 K/UL (150-450) Mean Platelet Volume 6.8 FL (6.5-10.1) Neutrophils (%) (Auto) 71.5 % (45.0-75.0) Lymphocytes (%) (Auto) 17.0 % (20.0-45.0) L Monocytes (%) (Auto) 7.1 % (1.0-10.0) Eosinophils (%) (Auto) 3.6 % (0.0-3.0) H Basophils (%) (Auto) 0.9 % (0.0-2.0) Sodium Level 138 MMOL/L (136-145) Potassium Level 3.9 MMOL/L (3.5-5.1) Chloride Level 102 MMOL/L (98-107) Carbon Dioxide Level 30 MMOL/L (21-32) Anion Gap 6 mmol/L (5-15) Blood Urea Nitrogen 34 mg/dL (7-18) H Creatinine 0.8 MG/DL (0.55-1.30) Estimat Glomerular Filtration Rate mL/min (>60) Glucose Level 127 MG/DL (74-106) H Calcium Level 8.7 MG/DL (8.5-10.1) Magnesium Level 2.0 MG/DL (1.8-2.4) Iron Level 35 ug/dL (50-175) L Total Iron Binding Capacity 113 ug/dL (250-450) L Percent Iron Saturation 31 % (15-50) Unsaturated Iron Binding 78 ug/dL (112-346) L Ferritin 527 NG/ML (8-388) H Random Vancomycin Level 13.5 ug/mL Current Medications Medications (Trade) Dose Ordered Sig/Kashif Route PRN Reason Start Time Stop Time Status Last Admin Dose Admin Acetaminophen (Tylenol) 650 mg Q4H PRN GT Mild Pain / T>100.5 07/15/18 10:30 08/13/18 19:44 Acetaminophen/ Hydrocodone Bitart ([place] 5/325) 1 tab Q6H PRN ORAL pain 4-10 07/15/18 10:00 07/22/18 09:59 Albuterol/ Ipratropium (Albuterol/ Ipratropium) 3 ml Q6H PRN HHN Shortness of Breath 07/15/18 10:00 07/20/18 09:59 Carbidopa/Levodopa (Sinemet 25/100) 1 tab THREE TIMES A DAY ORAL 07/15/18 13:00 08/14/18 12:59 07/17/18 13:44 Dextrose (Dextrose 50%) 25 ml Q30M PRN IV Hypoglycemia 07/14/18 12:52 08/13/18 12:51 Dextrose (Dextrose 50%) 50 ml Q30M PRN IV Hypoglycemia 07/14/18 12:52 08/13/18 12:51 Docusate Sodium (Colace) 100 mg EVERY 12 HOURS GT 07/14/18 21:00 08/13/18 20:59 07/17/18 08:33 Folic Acid (Folate) 1 mg DAILY ORAL 07/16/18 09:00 08/15/18 08:59 07/17/18 08:33 Heparin Sodium (Porcine) (Heparin 5000 units/ml) 5,000 units EVERY 12 HOURS SUBQ 07/14/18 21:00 08/13/18 20:59 07/17/18 08:38 Insulin Aspart (NovoLOG) BEFORE MEALS AND HS SUBQ 07/15/18 12:30 08/14/18 12:29 07/17/18 12:05 Lansoprazole (Prevacid) 30 mg DAILY GT 07/15/18 09:00 08/14/18 08:59 07/17/18 08:33 Meropenem 1 gm/ Sodium Chloride 100 ml @ 200 mls/hr Q8H IVPB 07/14/18 20:30 07/19/18 20:29 07/17/18 13:44 Ondansetron HCl (Zofran) 4 mg Q8H PRN IVP Nausea & Vomiting 07/15/18 10:00 08/14/18 09:59 Sennosides (Senokot) 2 tab QHS GT 07/15/18 21:00 08/14/18 20:59 07/16/18 20:39 Sodium Chloride 1,000 ml @ 50 mls/hr Q20H IV 07/14/18 17:00 08/13/18 16:59 07/17/18 04:00 Vancomycin HCl (Vanco rx to dose) 1 ea DAILY PRN MISC Per rx protocol 07/14/18 12:00 08/13/18 11:59 Vancomycin/Sodium Chloride 250 ml @ 166.667 mls/hr Q24H IVPB 07/17/18 10:00 07/22/18 09:59 07/17/18 10:44 Meche Nascimento MD Jul 17, 2018 16:01
--- NOTE | 2018-07-17 19:11 | Cardiology Report ---
APPROVED REPORT EKG Measurement Heart [id number] Normal sinus rhythm Left axis deviation Abnormal ECG
[2018-07-17 20:00] VITALS: BP 146/74
[2018-07-17] MEDS: Sennosides 8.6mg GT SCH (21:19)
[2018-07-18] VITALS: BP 136/68
[2018-07-18 04:00] VITALS: BP 125/74
[2018-07-18] MEDS: NovoLOG Insulin Flexpen SUBQ SCH ×3 (06:36→16:35)
[2018-07-18 07:53] VITALS: BP 133/56
[2018-07-18] MEDS: Levodopa/Carbidopa 25/100 tab ORAL SCH ×2 (08:15→12:28)
[2018-07-18] MEDS: Docusate 100mg/10ml Liq GT SCH (08:15)
[2018-07-18] MEDS: Heparin 5000 units/ml inj SUBQ SCH (08:16)
[2018-07-18] MEDS: Vancomycin 750mg/NS 250ml IVPB SCH (10:22)
--- NOTE | 2018-07-18 13:45 | General Progress Note ---
Assessment/Plan Assessment/Plan Resp. Failure - improved Sepsis m/p Urinary - h/o Klebsiela ESBL - abx per ID. BC Staph epi! On Vanco. Source uknknown?? Decubs - Dr. Angel to follow. Awaiting 2 D Echo results! OK for SNF. Subjective Allergies: Coded Allergies: No Known Allergies (Unverified , 06/15/18) Subjective More alert. Less SOB! Objective Last 24 Hour Vital Signs Date Time Temp Pulse Resp B/P (MAP) Pulse Ox O2 Delivery O2 Flow Rate FiO2 07/18/18 11:59 64 07/18/18 07:53 97.9 76 19 133/56 (81) 97 97.9 07/18/18 07:37 63 07/18/18 07:15 Nasal Cannula 3.0 07/18/18 04:00 74 07/18/18 04:00 97.8 72 19 125/74 (91) 97 97.8 07/18/18 00:00 97.8 78 16 136/68 (90) 97 97.8 07/17/18 21:00 Nasal Cannula 3.0 07/17/18 20:00 73 07/17/18 20:00 98.0 81 17 146/74 (98) 97 98.0 07/17/18 16:00 97.7 66 20 108/59 (75) 95 97.7 07/17/18 15:46 78 Intake and Output 07/17/18 07/18/18 19:00 07:00 Intake Total 1080 ml 1230 ml Output Total 900 ml 900 ml Balance 180 ml 330 ml Intake Free Water 200 ml IV Total 600 ml 550 ml Tube Feeding 480 ml 480 ml Output Urine Total 900 ml 900 ml # Voids 1 # Bowel Movements 1 Height (Feet): 5 Height (Inches): 8.00 Weight (Pounds): 127 Objective CV RR Lungs CTA Abd SNT. BS + E No CCE Skin Stage 2-3 sacral decubs. Stage 2 B ankle decubs. Beltran Santos MD Jul 18, 2018 13:45
[2018-07-18] MEDS ORDERED: VANCOMYCIN IV (14:09)
[2018-07-18 15:11] VITALS: BP 126/65
--- NOTE | 2018-07-19 09:26 | Discharge Summary ---
Discharge Summary Discharge Summary _ DATE OF ADMISSION: 07/14/2018 DATE OF DISCHARGE: 07/18/2018 CONSULTANTS: Dr. Meche Burk BRIEF HOSPITAL COURSE: Patient is a 78-year-old male, from [facility], was taken to [facility] for evaluation of shortness of breath. Patient for the last several days developed gradual progressive shortness of breath. The day prior to admission, he was placed on continuous oxygen therapy and close O2 saturation monitoring. O2 saturation had been 92-93% however, dropped to 70%. He developed severe dyspnea and was transferred to emergency room for further evaluation. He has medical history significant for COPD, and was recently discharged from [facility] a week prior. He has history of severe organic brain syndrome, Parkinson's dementia and Parkinson's disease, recent ESBL Klebsiella urosepsis, recurrent aspiration pneumonia, status post gastrostomy, hypertensive cardiovascular disease, insulin treated type 2 diabetes mellitus, malnutrition, recurrent volume depletion and recurrent encephalopathy. On evaluation at ED, he was noted to be febrile, temperature was 100.3. Blood work showed WBC 12.9. He was pancultured. Chest x-ray showed infiltrates on the left lung. EKG was in normal sinus rhythm. Urinalysis was unremarkable. He was given nebulizer treatment. He was admitted for evaluation of respiratory failure, and sepsis. Blood culture was showing growth of gram-positive organisms. ID was consulted for evaluation of gram-positive bacteremia, sepsis, leukocytosis and fevers. He was continued on meropenem and vancomycin. Blood glucose was monitored. He was placed on insulin sliding scale. long-term meds were continued. He was given heparin for DVT prophylaxis and Prevacid for GI prophylaxis. He came in with pressure sores on sacral, area. Dr. Tray Burk was consulted. Wound was evaluated. Wound care orders were made. He was also noted to have a non-blanchable red area to the lateral/medial left foot. Right heel was boggy with nonblanching erythema. He was placed on pressure release mattress, with frequent turning and repositioning and off loading of sites. Repeat chest x-ray showed improvement. Leukocytosis resolved. Repeat surveillance blood culture did not isolate growth. Patient was eventually cleared for discharge back to residential. FINAL DIAGNOSES: Acute respiratory failure, improved Sepsis most probably urinary, with history of ESBL urine infection Coagulase-negative staph bacteremia Aspiration pneumonia/HCAP Decubitus ulcer of sacral region, stage IV, present on admission Organic brain syndrome Parkinson's disease Parkinson's dementia Gastrostomy tube and dysphagia Hypertension with hypertensive cardiovascular disease Diabetes mellitus type 2 Malnutrition Volume repletion Encephalopathy Anemia DISPOSITION: Patient was discharged to [facility]. DISCHARGE MEDICATIONS: Refer to Discharge Medication List. I have been assigned to dictate discharge summary on this account, and I was not involved in the patient's management. Keily Moreno NP Jul 19, 2018 09:26
== END 2018-07-18 16:50 | DRG 871 ==
LOC: EDBD 11:05 → EMR 12:02 → EDBEDREQ 12:42 → 2E 12:59 → EDBEDREQ 13:22 → 2E 14:46
DX: A41.1 Sepsis due to other specified staphylococcus (principal); L89.154 Pressure ulcer of sacral region, stage 4; J69.0 Pneumonitis due to inhalation of food and vomit; J96.00 Acute respiratory failure, unspecified whether with hypoxia or hypercapnia; J18.9 Pneumonia, unspecified organism; Z43.1 Encounter for attention to gastrostomy; E46 Unspecified protein-calorie malnutrition; G93.40 Encephalopathy, unspecified; J44.9 Chronic obstructive pulmonary disease, unspecified; F09 Unspecified mental disorder due to known physiological condition; G20 Parkinson's disease; F02.80 Dementia in other diseases classified elsewhere, unspecified severity, without behavioral disturbance, psychotic disturbance, mood disturbance, and anxiety; Z66 Do not resuscitate; I11.9 Hypertensive heart disease without heart failure; E11.9 Type 2 diabetes mellitus without complications; Z79.4 Long term (current) use of insulin; Y95 Nosocomial condition; R13.10 Dysphagia, unspecified; D64.9 Anemia, unspecified
CPT/HCPCS: 36415; 36600; 71045; 80048; 80053; 80202; 81003; 82550; 82553; 82728; 82803; 82962; 83540; 83550; 83605; 83735; 83880; 84484; 85025; 87040; 87081; 87181; 93005; 94640; 94664; 94760; 96365; 99285; J1815